=== PATIENT | female | born 1965 | race Caucasian/White ===

== ENCOUNTER 2018-04-14 14:15 | Emergency (ER) | payer SELFPAY ==
[2018-04-14 14:28] VITALS: BP 163/83; PULSE 75; RESP 16; TEMP 36.6; O2SAT 98
--- NOTE | 2018-04-14 14:37 | DI.RAD_ITS ---
SYMPTOM/DIAGNOSIS: PAIN 4TH, 5TH MC, PUNCHED WALL RIGHT HAND: Three views. There is a fracture involving the distal aspect of the right 5th metacarpal extending in to the metacarpal head. The fracture is mildly displaced and angulated anteriorly No other fracture or dislocation is seen. No radiopaque foreign bodies are seen in the soft tissues. IMPRESSION: Mildly displaced fracture involving the distal right 5th metacarpal.
--- NOTE | 2018-04-14 14:38 | W.ED.GENAD ---
Discharge Plan Disposition Patient Disposition: HOME Condition: Serious Discharge Details Chief Complaint: Orthopedic Clinical Impression: Closed fracture of fifth metacarpal bone of right hand Reason For Visit: right hand pain Primary Care Provider: Terry Dailey ED Provider: Tarik De Souza Home Meds and New Rx's Prescriptions: No Action ibuprofen 200 mg Capsule 800 mg PO TID PRNRF: 0 Discharge Instructions Instructions: Boxer Fracture (ED) Additional Instructions: Please take ibuprofen 600 mg every 6 hours as needed for pain. Please take tylenol 650mg every 6 hours as needed for pain. Please contact your primary care physician to arrange follow-up. Keep splint intact. No lifting with right hand. Call orthopedics to schedule follow-up. Return to the ER for any worsening or new concerning symptoms. Referrals: Fahad Galvez MD [[facility] STAFF PHYSICIAN] - Medical Decision Making 53yo f here 2 days after punching wall with right 4th and 5th MC pain, tenderness and swelling. Neurologically intact xray of the hand reviewed and interpreted by me: distal 5th MT fracture with minimal angulation. Hand splinted. Neuro intact post splint application. Patient was instructed to keep splint intact and not lift with her right hand. Patient was instructed to follow-up with orthopedics. She has previously seen Dr. Galvez for other injuries and would prefer to follow-up with him. HPI General Mode of arrival: ambulatory. Date/Time Provider Initiated Documentation: 04/14/18 14:33. Limitations to Documentation: no limitations. Information obtained by: patient. HPI Narrative: 53-year-old female presents with chief complaint of right hand pain. Patient notes that 2 days ago she punched a wall and injured her hand. Hand has been painful since the injury. Pain is moderate to severe and worse with movement or on palpation. She has associated swelling. Pain is localized to her fourth and fifth metacarpals. No associated numbness. Related Data Home Medications Medication Instructions Recorded Confirmed ibuprofen 800 mg PO TID PRN 04/14/18 04/14/18 Allergies Allergy/AdvReac Type Severity Reaction Status Date / Time Tetracyclines AdvReac Mild Nausea Unverified 04/14/18 14:33 General Stated Complaint: Orthopedic MARCELLUS: 4 Review of Systems Musculoskeletal Reports as per HPI Neurologic Reports as per HPI [facility] Medical History Ectopic Lumbago Osteoarthritis Social History Smoking/Tobacco Use Status: Current every day Surgical History Excision, Lipoma (08/12/14) HYSTERECTOMY KNEE REPAIR Oophrectomy, Right Exam Const General: cooperative and no acute distress Cardio Rate: regular rate and not tachycardic Rhythm: regular rhythm Neuro General: alert, awake, tone normal and no focal motor deficits (distal right hand all digits) Extrem General: no edema Right upper extremity: wrist Details: normal to inspection and normal ROM; no tenderness and hand Details: neuromotor exam normal, neurosensory exam normal and tenderness Location: of the dorsal hand Location: over the 4th metacarpal and over the 5th metacarpal Course Vital Signs Temperature 36.6 C 04/14/18 14:28 Pulse 75 04/14/18 14:28 Respiratory Rate 16 04/14/18 14:28 Blood Pressure 163/83 H 04/14/18 14:28 Pulse Oximetry 98 04/14/18 14:28 Temperature 36.6 C 04/14/18 14:28 Temperature Source Tympanic 04/14/18 14:28 Pulse 75 04/14/18 14:28 Respiratory Rate 16 04/14/18 14:28 Blood Pressure 163/83 H 04/14/18 14:28 Blood Pressure Position Sitting 04/14/18 14:28 Pulse Oximetry 98 04/14/18 14:28 Oxygen Delivery Method Room Air 04/14/18 14:28 Oxygen Flow Rate 0 04/14/18 14:28 Pain Level 5 04/14/18 14:28
--- NOTE | 2018-04-14 14:46 | ED.GENADUL_ITS ---
Discharge Plan Disposition Patient Disposition: HOME Condition: Serious Discharge Details Chief Complaint: Orthopedic Clinical Impression: Closed fracture of fifth metacarpal bone of right hand Reason For Visit: right hand pain Primary Care Provider: Terry Dailey ED Provider: Tarik De Souza Home Meds and New Rx's Prescriptions: No Action ibuprofen 200 mg Capsule 800 mg PO TID PRNRF: 0 Discharge Instructions Instructions: Boxer Fracture (ED) Additional Instructions: Please take ibuprofen 600 mg every 6 hours as needed for pain. Please take tylenol 650mg every 6 hours as needed for pain. Please contact your primary care physician to arrange follow-up. Keep splint intact. No lifting with right hand. Call orthopedics to schedule follow-up. Return to the ER for any worsening or new concerning symptoms. Referrals: Fahad Galvez MD [[facility] STAFF PHYSICIAN] - Medical Decision Making 53yo f here 2 days after punching wall with right 4th and 5th MC pain, tenderness and swelling. Neurologically intact xray of the hand reviewed and interpreted by me: distal 5th MT fracture with minimal angulation. Hand splinted. Neuro intact post splint application. Patient was instructed to keep splint intact and not lift with her right hand. Patient was instructed to follow-up with orthopedics. She has previously seen Dr. Galvez for other injuries and would prefer to follow-up with him. HPI General Mode of arrival: ambulatory . Date/Time Provider Initiated Documentation: 04/14/18 14:33 . Limitations to Documentation: no limitations . Information obtained by: patient . HPI Narrative: 53-year-old female presents with chief complaint of right hand pain. Patient notes that 2 days ago she punched a wall and injured her hand. Hand has been painful since the injury. Pain is moderate to severe and worse with movement or on palpation. She has associated swelling. Pain is localized to her fourth and fifth metacarpals. No associated numbness. Related Data Home Medications Medication Instructions Recorded Confirmed ibuprofen 800 mg PO TID PRN 04/14/18 04/14/18 Allergies Allergy/AdvReac Type Severity Reaction Status Date / Time Tetracyclines AdvReac Mild Nausea Unverified 04/14/18 14:33 General Stated Complaint: Orthopedic MARCELLUS: 4 Review of Systems Musculoskeletal Reports as per HPI Neurologic Reports as per HPI [facility] Medical History Ectopic Lumbago Osteoarthritis Social History Smoking/Tobacco Use Status: Current every day Surgical History Excision, Lipoma (08/12/14) HYSTERECTOMY KNEE REPAIR Oophrectomy, Right Exam Const General: cooperative and no acute distress Cardio Rate: regular rate and not tachycardic Rhythm: regular rhythm Neuro General: alert, awake, tone normal and no focal motor deficits (distal right hand all digits) Extrem General: no edema Right upper extremity: wrist Details: normal to inspection and normal ROM; no tenderness and hand Details: neuromotor exam normal, neurosensory exam normal and tenderness Location: of the dorsal hand Location: over the 4th metacarpal and over the 5th metacarpal Course Vital Signs Temperature 36.6 C 04/14/18 14:28 Pulse 75 04/14/18 14:28 Respiratory Rate 16 04/14/18 14:28 Blood Pressure 163/83 H 04/14/18 14:28 Pulse Oximetry 98 04/14/18 14:28 Temperature 36.6 C 04/14/18 14:28 Temperature Source Tympanic 04/14/18 14:28 Pulse 75 04/14/18 14:28 Respiratory Rate 16 04/14/18 14:28 Blood Pressure 163/83 H 04/14/18 14:28 Blood Pressure Position Sitting 04/14/18 14:28 Pulse Oximetry 98 04/14/18 14:28 Oxygen Delivery Method Room Air 04/14/18 14:28 Oxygen Flow Rate 0 04/14/18 14:28 Pain Level 5 04/14/18 14:28
--- NOTE | 2018-04-14 15:22 | DI.VRAD_ITS ---
EXAM: XR Right Hand Complete, 3 or more Views EXAM DATE/TIME: 04/14/2018 2:39 PM CLINICAL HISTORY: 53 years old, female; Pain; Hand; Right; Patient HX: Pain 4th/5th mc; Per PT: Hit door casing TECHNIQUE: XR Right hand 3 or more views. COMPARISON: CR RIGHT WRIST LIMITED 09/22/2012 7:28 AM FINDINGS: Bones/joints: Displaced fracture distal fifth metacarpal shaft extending into the metacarpal head. No articular extension. Soft tissues: Normal. IMPRESSION: Displaced fracture distal fifth metacarpal shaft extending into the metacarpal head. No articular extension. Dictated and Authenticated by: Myah Gomez MD. Ordering:EDWIN WAKEFIELD MD
== END 2018-04-14 14:35 | disposition home or self-care (01) ==
PROVIDERS: Emergency Provider Student in an Organized Health Care Education/Training Program; PCP Family Medicine
DX: S62.336A Displaced fracture of neck of fifth metacarpal bone, right hand, initial encounter for closed fracture (principal); W22.09XA Striking against other stationary object, initial encounter
CPT/HCPCS: 26600; 73130; L3809

== ENCOUNTER 2018-04-23 09:32 | Outpatient (CLI) | payer SELFPAY ==
--- NOTE | 2018-04-23 09:21 | DI.RAD_ITS ---
SYMPTOM/DIAGNOSIS: F/U FX RIGHT HAND: Three views. Comparison is made with 04/14/18. There has been no change in alignment of the fracture involving the distal aspect of the right fifth metacarpal. No new fractures or dislocations are seen. The soft tissues are unremarkable. IMPRESSION: Stable right fifth metacarpal fracture.
== END 2018-04-23 09:52 ==
PROVIDERS: PCP Family Medicine; Visit Provider Physician Assistant
DX: S62.366A Nondisplaced fracture of neck of fifth metacarpal bone, right hand, initial encounter for closed fracture (principal)
CPT/HCPCS: 73130

== ENCOUNTER 2019-04-01 01:26 | Outpatient (CLI) | payer SELFPAY ==
--- NOTE | 2019-04-01 08:51 | DI.RAD_ITS ---
EXAM: XR FINGER LT INDEX INDICATION: Foreign body versus cellulitis, M79.645 PAIN LT FINGER. COMPARISON: XR hand RT complete from 04/23/2018 TECHNIQUE: 2D digital imaging was performed. FINDINGS: No radiopaque foreign body is seen. There is no radiographic evidence of osteomyelitis. No abnorma l soft tissue air is seen.
== END 2019-04-01 01:46 ==
PROVIDERS: PCP Family Medicine
DX: M79.645 Pain in left finger(s) (principal)
CPT/HCPCS: 73140

== ENCOUNTER 2019-05-23 20:07 | Emergency (ER) | payer SELFPAY ==
[2019-05-23 20:10] VITALS: BP 167/71; PULSE 95; RESP 24; TEMP 36.8; O2SAT 98
[2019-05-23] MEDS: HYDROmorphone 2 MG/ML VIAL 1 MG IVP (20:20)
[2019-05-23] MEDS: Normal Saline Flush 10 ML SYR IVP (20:20)
--- NOTE | 2019-05-23 20:25 | ED.GENADUL_ITS ---
Discharge Plan Disposition Patient Disposition: HOME Condition: Stable Discharge Details Chief Complaint: Nk/Back Pain Clinical Impression: Back pain Primary Care Provider: Terry Dailey ED Provider: Jenaro Bansal Home Meds and New Rx's Prescriptions: New diazepam [Valium] 5 mg tablet 5 mg PO Q6H PRN (Reason: muscle spasm) Qty: 20 RF: 0 prednisone 20 mg tablet 60 mg PO DAILY 4 Days Qty: 12 RF: 0 Continued ibuprofen 200 mg Capsule 800 mg PO TID PRNRF: 0 Discharge Instructions Instructions: Back Pain (ED) Additional Instructions: follow up with your primary care provider within a week and also I referred you to the pain clinic and you should be contacted with an appointment if you have fevers, difficulty urinating or feel more pain return to the emergency department you can take 1000mg tylenol every 6 hours and 800mg ibuprofevern every 8 hours. You an also use over the counter lidocaine patches Medical Decision Making 54 yo female with prior history of back pain s/p injections per pt many years ago comes in with several days of lower back pain but acutely worsened tonight withuot falls or trauma. Denies fevers or ivdu. She states she went on a trip recently where she walked much farther than she normally does. She arrives writhing in pain with pain in lower left back without deformities and no rashes or skin breakdown, has mild llq pain as well. No chest pain or upper back pain to suggest acs. Given her degree of pain could be dissection vs kidney stone, will obtain imaging to eval for these and also lumbar spince compression fx. Has no weakness or saddle anesthesia on exam so doubt cauda equina and no urinary retention and no findings on history to suggest sea pt's pain improved, labs unremarkable as is imaging. She still has left lower back pain shooting down the leg likely from sciatica, no saddle anesthesia and had urination with only 10cc urine left in bladder so doubt cauda equina. Could also be muscle spasm. She is still having a lot of pain with movement and I offered admission for pain control which she declined. I advised f/u with her pcp and return precautions given Differential Diagnosis Differential Diagnosis: sciatica, muscle pain, spasm, dissection Imaging Data Radiologic Study: Attestation: I personally reviewed and interpreted this imaging study as follows: Imaging: CT Scan Radiologist's impression: no acute findings Lab Data Lab results reviewed: Yes I reviewed the patient's lab results. HPI General Mode of arrival: wheelchair . Date/Time Provider Initiated Documentation: 05/23/19 20:10 . Limitations to Documentation: no limitations . Information obtained by: patient . History of Present Illness 54 year old F presents to the emergency department with the chief complaint of back pain, described as severe, with intensity rated at 10. Quality is described as sharp, and is localized to the back. Patient reports no radiation. Patient started experiencing this hour(s) (2) and it has been constant. No relieving factors improve symptom(s), No exacerbating factors reported . Patient did receive the following treatments prior to arrival, none Related Data Home Medications Medication Instructions Recorded Confirmed ibuprofen 800 mg PO TID PRN 04/14/18 05/23/19 diazepam [Valium] 5 mg PO Q6H PRN #20 tab 05/23/19 prednisone 60 mg PO DAILY 4 Days #12 tab 05/23/19 Previous Rx's Medication Instructions Recorded diazepam [Valium] 5 mg PO Q6H PRN #20 tab 05/23/19 prednisone 60 mg PO DAILY 4 Days #12 tab 05/23/19 Allergies Allergy/AdvReac Type Severity Reaction Status Date / Time Tetracyclines AdvReac Mild Nausea Verified 05/23/19 20:15 General Stated Complaint: Nk/Back Pain MARCELLUS: 3 Review of Systems All systems reviewed & are unremarkable except as noted in HPI and below Constitutional Constitutional: Denies chills and Denies fever(s) Cardiovascular Cardiovascular: Denies dyspnea Respiratory Respiratory: Denies dyspnea Gastrointestinal Gastrointestinal: Denies abdominal pain, Denies nausea and Denies vomiting Musculoskeletal Musculoskeletal: Denies joint swelling Endocrine Endocrine: Denies heat intolerance [facility] Medical History (Updated 04/11/19 @ 08:51 by Shanta Pozo NP) Ectopic Finger pain, left (Acute) Lumbago Osteoarthritis Surgical History (Updated 04/18/19 @ 14:48 by JEFFREY Acuña) Excision, Lipoma (08/12/14) LEFT SIDE OF NOSE History of hysterectomy (Resolved) History of unilateral oophorectomy (Resolved) HYSTERECTOMY KNEE REPAIR LEFT Oophrectomy, Right Social History Smoking/Tobacco Use Status: Current every day Alcohol Intake: never Drug use: Never Substance use type: does not use Details: twisted tea on weekends Do you feel safe at home: Yes Do you feel safe in your relationship?: Yes Exam Const General: other (in pain) Orientation: alert HENMT Head: normal to inspection Ears: external ears normal General nose exam: external nose normal Mouth: moist mucous membranes Eyes General: appearance normal, both eyes and all related structures Neck Neck: normal visual inspection Resp Effort & Inspection: normal respiratory effort and able to speak in complete sentences Cardio Rate: regular rate Back/Spine/Pelvis Back: no CVA tenderness Skin General skin exam: no rashes or lesions noted Neuro General: alert and oriented x3 Extrem General: normal to inspection Psych Mental Status: mental status grossly normal Course Vital Signs Vital signs: Vital Signs Temperature 36.8 C 05/23/19 20:10 Pulse 95 H 05/23/19 20:10 Respiratory Rate 24 05/23/19 20:10 Blood Pressure 167/71 H 05/23/19 20:10 Pulse Oximetry 98 05/23/19 20:10 Temperature 36.8 C 05/23/19 20:10 Temperature Source Skin 05/23/19 20:10 Pulse 95 H 05/23/19 20:10 Respiratory Rate 24 05/23/19 20:10 Blood Pressure 167/71 H 05/23/19 20:10 Blood Pressure Position Supine 05/23/19 20:10 Pulse Oximetry 98 05/23/19 20:10 Oxygen Delivery Method Room Air 05/23/19 20:10 Oxygen Flow Rate 0 05/23/19 20:10 Pain Level 10 05/23/19 20:20
[2019-05-23 20:28] LABS: Abs Immature Grans 0.06 k/cumm (0.0-0.09); Absolute Basophil Count 0.04 k/cumm (0.0-0.2); Absolute Eosinophil Count 0.24 k/cumm (0.0-0.7); Absolute Monocyte Count 0.76 k/cumm (0.11-0.7); Absolute Neutrophil Count 5.37 k/cumm (1.2-6.7); Basophils % 0.4; Eosinophils % 2.2; HCT 47.7 % (36.0-46.0); HGB 15.6 g/dL (12.0-15.5); Immature Grans % 0.6; Lymphocytes % 39.4; Mean Corp. HGB Concentration 32.7 g/dL (32.0-36.0); Mean Corpuscular Hemoglobin 29.9 pg (27.0-33.0); Mean Corpuscular Volume 91.4 fL (80-95); Mean Platelet Volume 9.8 fL (8.0-11.0); Monocytes % 7.1; Neutrophils % 50.3; Platelet Count 246 x1000/uL (130-400); RBC 5.22 m/cumm (4.00-5.20); RBC Distribution Width 13.6 % (11.7-14.6); White Blood Cell Count 10.67 k/cumm (4.4-10.8)
[2019-05-23] MEDS: HYDROmorphone 2 MG/ML VIAL ×2 (20:39→23:38)
[2019-05-23] MEDS: diazePAM 10 MG/2 ML SYR 5 MG IVP ×2 (20:40→21:11)
[2019-05-23 20:42] VITALS: O2SAT 98
[2019-05-23 20:49] LABS: PTT Activated 24.7 sec (21.0-31.4); Prothrombin Time 9.6 sec (9.3-11.0)
[2019-05-23 20:57] LABS: ALT 28 U/L (14-59); AST 15 U/L (15-37); Albumin 4.3 g/dL (3.4-5.0); Alkaline Phosphatase 96 U/L (46-116); Anion Gap 12.6 mmol/L (3-11); BUN 15 mg/dL (7-18); Bilirubin, Total 0.4 mg/dL (0.2-1.0); CO2 25.4 mmol/L (21.0-32.0); CREATININE 0.82 mg/dL (0.55-1.02); Calcium 9.1 mg/dL (8.5-10.1); Chloride 102 mmol/L (98-107); Glucose 163 mg/dL (74-106); Lipase 181 U/L (73-393); Magnesium 1.8 mg/dL (1.8-2.4); Potassium 4.1 mmol/L (3.5-5.1); Sodium 140 mmol/L (136-145); Total Protein 8.4 g/dL (6.4-8.2)
[2019-05-23 21:16] VITALS: O2SAT 98
--- NOTE | 2019-05-23 21:30 | DI.CT_ITS ---
EXAM: CT THORAX ABD/PEL CTA CT THORAX ABD/PEL CTA CLINICAL HISTORY: upper to lower back pain. upper to lower back pain TECHNIQUE: Imaging Protocol: Axial computed tomography images with coronal and sagittal reformatted images were created and reviewed CONTRAST MATERIAL: Intravenous: Omnipaque 350 Contrast volume:structured data in ml Contrast route:I V - Oral: No COMPARISON: No exams were available for comparison FINDINGS: CHEST: Heart and great vessels: There is no evidence pulmonary emboli or aortic dissection. There are no pleural or pericardial effusions. Adenopathy: None. Lungs: No pulmonary nodules, mass or infiltrate. Bones: There is no evidence of spine or rib fracture. There are mild degenerative changes in the thor acic spine. ABDOMEN: Liver: Normal density. No measurable mass. Gallbladder and biliary tract: No radiodense calculus or dilation. Pancreas: Normal density, no abnormal calcifications or inflammatory process. Spleen: Normal. Kidneys: Normal size, contour and axis. No radiodense stones or obstructive uropathy. No masses seen. Adrenal glands: No masses seen. Abdominal Aorta: Abdominal portion non-dilated. Mild atherosclerotic changes. The branch vessels keya w no evidence of occlusion or significant stenosis. PELVIS: Bladder: No gross wall thickening, focal mass or stones. Bowel: No obstruction or bowel wall thickening. There is mild sigmoid diverticulosis. Peritoneal cavity: No ascites, focal collection or mesenteric inflammatory response. Bones: No suspicious lesions or fractures. Mild degenerative changes. Reproductive organs: Within normal limits. Lymph nodes: Unremarkable. Impression: Unremarkable CT scan of the chest, abdomen and pelvis. DATA REPOSITORY: All CT scans at this facility are submitted to the National Radiology Data Registry (NRDR) Dose Index Registry (DIR) with the [employer] (ACR). RADIATION OPTIMIZATION: All CT scans at this facility use at least one of these dose optimization te chniques: automated exposure control; mA and/or kV adjustment per patient size (includes targeted exa ms where dose is matched to clinical indication); or iterative reconstruction.
[2019-05-23] MEDS: Omnipaque 350 MG/ML 100 ML BTL IJ (22:04)
--- NOTE | 2019-05-23 22:05 | DI.CT_ITS ---
EXAM: CT LUMBAR SPINE WO CLINICAL HISTORY: lower back pain TECHNIQUE: Images of the lumbar spine were reconstructed from the abdomen pelvic CT. COMPARISON: No exams were available for comparison FINDINGS: There is no evidence of fracture. The alignment appears normal. The discs are normal in height. T here are small endplate osteophytes. There is mild disc bulging at L3-4 and L4-5. There is no focal disc herniation at any level. There is mild central canal stenosis at L4-5 secondary to combination of disc bulging and and ligamentous hypertrophy. There is mild bilateral neural foraminal narrowing . IMPRESSION: Degenerative disc changes and ligamentous hypertrophy causing mild central canal stenosis and mild n eural foraminal narrowing at L4-5. There is no evidence of an acute abnormality.
--- NOTE | 2019-05-23 22:07 | DI.VRAD_ITS ---
Addendum created by Adam Amaro MD on 05/23/2019 10:54:24 PM EST Moderate soft and calcified atherosclerosis of the aorta without flow-limiting stenosis. No flow-limiting stenosis or occlusion in the abdominal aortic branch vessels. Initial report created on 05/23/2019 10:07:35 PM EST PROCEDURE INFORMATION: Exam: CT Angiography Chest With Contrast Exam date and time: 05/23/2019 9:21 PM Age: 54 years old Clinical history: Other: Upper to lower back pain TECHNIQUE: Imaging protocol: Computed tomographic angiography of the chest with intravenous contrast. 3D rendering: MIP reconstructed images were created and reviewed. Radiation optimization: All CT scans at this facility use at least one of these dose optimization techniques: automated exposure control; mA and/or kV adjustment per patient size (includes targeted exams where dose is matched to clinical indication); or iterative reconstruction. Contrast material: [id number]; Contrast volume: 100 ml; Contrast route: IV; COMPARISON: CR LEFT RIBS TO INCLUDE CXR 08/08/2012 10:48 PM FINDINGS: Pulmonary arteries: No pulmonary embolism. Aorta: The aorta is normal. Lungs: Unremarkable. No consolidation. No masses. Pleural space: Unremarkable. No pneumothorax. No pleural effusion. Heart: Unremarkable. No cardiomegaly. No pericardial effusion. Lymph nodes: There is no evidence of lymphadenopathy. Bones/joints: The thoracic spine demonstrates mild degenerative changes at multiple levels. Soft tissues: Unremarkable. IMPRESSION: No acute abnormality in the chest. No pulmonary embolism. PROCEDURE INFORMATION: Exam: CT Angiography Abdomen and Pelvis With Contrast Exam date and time: 05/23/2019 9:21 PM Age: 54 years old Clinical history: Other: Upper to lower back pain TECHNIQUE: Imaging protocol: Computed tomographic angiography of the abdomen and pelvis with intravenous contrast material. 3D rendering: MIP reconstructed images were created and reviewed. Radiation optimization: All CT scans at this facility use at least one of these dose optimization techniques: automated exposure control; mA and/or kV adjustment per patient size (includes targeted exams where dose is matched to clinical indication); or iterative reconstruction. Contrast material: [id number]; Contrast volume: 100 ml; Contrast route: IV; COMPARISON: CR LEFT RIBS TO INCLUDE CXR 08/08/2012 10:48 PM FINDINGS: Aorta: The aorta demonstrates mild atherosclerotic calcification. No aortic aneurysm. Celiac trunk and mesenteric arteries: No occlusion or significant stenosis. Renal arteries: No occlusion or significant stenosis. Right iliac arteries: No occlusion or significant stenosis. Left iliac arteries: No occlusion or significant stenosis. Liver: The liver is normal. Gallbladder and bile ducts: The gallbladder is normal. Pancreas: The pancreas is normal. Spleen: The spleen is normal. Adrenals: The adrenal glands are normal. Kidneys and ureters: The kidneys are normal. Stomach and bowel: Mild diverticulosis is present in the distal colon. Appendix: A normal appendix is identified. Intraperitoneal space: Unremarkable. No free air. No significant fluid collection. Lymph nodes: Unremarkable. No enlarged lymph nodes. Bladder: The bladder is normal. Reproductive: Unremarkable as visualized. Bones/joints: Mild degenerative sclerosis of the right sacroiliac joint. The lumbar spine demonstrates mild degenerative changes at multiple levels. Soft tissues: Unremarkable. IMPRESSION: No acute abnormality in abdomen pelvis. Dictated and Authenticated by: Adam Amaro MD. Ordering:BAUDILIO Eason MD
[2019-05-23 22:50] LABS: Bilirubin Negative (Negative); Blood Trace-intact (Negative); Clarity Clear (Clear); Glucose Negative (Negative); Ketones Negative (Negative); Leukocyte Esterase Negative (Negative); Nitrite Negative (Negative); Urobilinogen 0.2 EU/dL (Up TO 0.2); pH 5.5 (5-8)
[2019-05-23] MEDS: Ketorolac 30 MG/ML VIAL IVP (22:54)
--- NOTE | 2019-05-23 22:59 | DI.VRAD_ITS ---
PROCEDURE INFORMATION: Exam: CT Lumbar Spine Without Contrast Exam date and time: 05/23/2019 9:21 PM Age: 54 years old Clinical history: Low back pain; Patient HX: Severe upper back to lower back pain TECHNIQUE: Imaging protocol: Computed tomography images of the lumbar spine without contrast. Radiation optimization: All CT scans at this facility use at least one of these dose optimization techniques: automated exposure control; mA and/or kV adjustment per patient size (includes targeted exams where dose is matched to clinical indication); or iterative reconstruction. COMPARISON: No relevant prior studies available. FINDINGS: Vertebrae: Lumbar vertebral body heights are maintained and in normal alignment. No acute fracture. Discs/Spinal canal/Neural foramina: Mild multilevel degenerative changes of the lumbar spine, most pronounced at L3-L4 and L4-L5 where partially calcified disc bulge and protrusion respectively results in mild spinal canal stenosis. No bony neural foraminal stenosis. Soft tissues: Unremarkable. IMPRESSION: 1. Mild multilevel degenerative changes of the lumbar spine, most pronounced at L3-L4 and L4-L5 where there is mild spinal canal stenosis. No bony neural foraminal stenosis. 2. No acute fracture or traumatic malalignment of the lumbar spine. Dictated and Authenticated by: Adam Amaro MD. Ordering:BAUDILIO Eason MD
[2019-05-23 23:11] LABS: RBC 0-2 HPF (0-2); WBC 0-2 HPF (0-5)
[2019-05-23 23:12] LABS: Bacteria Rare HPF (Negative); C & S Indicated? No; Epithelial Cells Many HPF (Negative)
[2019-05-23] MEDS: Lidocaine 5% Patch 1 PATCH (23:31)
[2019-05-23 23:32] LABS: Casts Negative LPF (Negative); Crystals Negative HPF (Negative); Mucus Negative (Negative)
[2019-05-23] MEDS: predniSONE 20 MG TAB 60 MG PO (23:34)
[2019-05-23] MEDS: diazePAM 5 MG TAB PO (23:36)
[2019-05-23 23:49] VITALS: BP 128/74; PULSE 78; RESP 17; TEMP 36.7; O2SAT 99
--- NOTE | 2019-05-26 15:34 | PDOC.ERCMPRO ---
- If Service Date Differs Date of service: 05/26/19 Time of Service: 15:34 Care Management Progress Note CM consult from ED for referral to [facility] and PCP F/U. PCP appt already scheduled for 05/26/19. CM delivered referral to Pain Clinic on 05/26/19.
== END 2019-05-23 23:50 | disposition home or self-care (01) ==
PROVIDERS: Emergency Provider Emergency Medicine; PCP Family Medicine
DX: M54.5 Low back pain (principal); R10.32 Left lower quadrant pain
CPT/HCPCS: 74177; 80053; 83690; 96374; 96375; 96376; 99285; 72131; 81003; 81015; 83735; 85025; 85610; 85730; 99284; J1885; J3360; J3490; J7512

== ENCOUNTER 2019-06-17 09:29 | Emergency (ER) | payer SELFPAY ==
[2019-06-17 09:33] VITALS: BP 161/93; PULSE 77; RESP 16; TEMP 36.8; O2SAT 97
--- NOTE | 2019-06-17 09:57 | DI.CT_ITS ---
EXAM: CT CERVICAL SPINE WO CLINICAL HISTORY: cervical pain TECHNIQUE: Noncontrast COMPARISON: No exams were available for comparison FINDINGS: No fracture or subluxation is seen. There are mild degenerative disc changes. There is no paraspin al hematoma. No pneumothorax is seen at the lung apices. IMPRESSION: Mild degenerative changes. No acute abnormality.
--- NOTE | 2019-06-17 11:09 | ED.GENADUL_ITS ---
Discharge Plan Disposition Patient Disposition: HOME Condition: Stable Discharge Details Chief Complaint: Nk/Back Pain Clinical Impression: Acute neck pain Primary Care Provider: Terry Dailey ED Provider: Nba Watkins Home Meds and New Rx's Prescriptions: No Action No Known Home Meds RF: 0 Discharge Instructions Instructions: Neck Pain (ED) Additional Instructions: 1. Drink plenty of fluids. 2. Continue all medications as prescribed. 3. Acetaminophen 1000mg every 4 hours (up to 5 time a day) and/or ibuprofen 600mg every 6 hours as needed for fever or pain. Return to the Emergency Department (ED) if your condition worsens, does not improve as expected, or for ANY other concerns. Specifically, return if you have new or uncontrolled pain, worsening fever, difficulty breathing, vomiting, or are unable to drink fluids. Medical Decision Making 54-year-old woman presents with persistent right upper neck pain which has persisted for the past 2 weeks since an accidental fall. Localizes pain to the right upper lateral neck. Pain is worsened with positional change and by direct palpation. Has no associated neurologic deficits. Exam significant for focal tenderness which reproduced subjective pain. Cervical CT ordered a nondiagnostic. Discussed nondiagnostic findings with patient. Discharged with plan for aggressive OTC analgesia, ice, and outpatient PCP follow-up. Given usual customary return instructions prior to discharge. Medical Records Medical records reviewed: Yes I reviewed the patient's medical records. Imaging Data Radiologic Study: Attestation: I personally reviewed and interpreted this imaging study as follows: Imaging: CT Scan (Cervical spine without contrast) My impression: No acute pathology or explanation of pain appreciated. Reviewed independently contemporaneously by myself. Radiologist's impression: Same HPI 54-year-old with a past medical history which includes lumbago, osteoarthritis, and back pain. Recently treated with steroids for lower back sciatica. Also recently had an accidental fall with a head impact and severe, persistent right- sided neck pain. She notes a focal discomfort at her upper right lateral neck which is worse with direct palpation or positional change. She has not had any associated neuro symptoms including no upper extremity weakness, paresthesias, or discoordination. She has had no difficulty with her stance and gait. Of note she had minimal improvement while taking steroids for low back pain and has not taken any OTC analgesia since completing a course that medication 1 week ago. She denies fever/chills, difficulty swallowing, or any subjective soft tissue swelling. General Date/Time Provider Initiated Documentation: 06/17/19 09:31 . Related Data Home Medications Medication Instructions Recorded Confirmed Unknown [No Known Home Meds] 06/17/19 06/17/19 Allergies Allergy/AdvReac Type Severity Reaction Status Date / Time Tetracyclines AdvReac Mild Nausea Verified 06/17/19 09:40 General Stated Complaint: Nk/Back Pain MARCELLUS: 4 Review of Systems All systems reviewed & are unremarkable except as noted in HPI and below PFSH Medical History Ectopic Finger pain, left (Acute) Lumbago Osteoarthritis Surgical History Excision, Lipoma (08/12/14) LEFT SIDE OF NOSE History of hysterectomy (Resolved) History of unilateral oophorectomy (Resolved) HYSTERECTOMY KNEE REPAIR LEFT Oophrectomy, Right Social History Smoking/Tobacco Use Status: Current every day Alcohol Intake: current Alcohol Intake frequency: a few times a month Drug use: Never Substance use type: does not use Details: twisted tea on weekends Household members: significant other Housing: house Number of Children: 4 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 GENERAL: alert, active, no acute distress, well -hydrated, well-nourished HEENT: atraumatic/normocephalic, PERRLA, EOMI, conjunctiva clear, external ears/canals normal, nasal mucosa normal NECK: supple, full range of motion; focal tenderness right lateral cervical spine C1-C2 CARDIOVASCULAR: nl pulses, no edema PULMONARY: nl effort, no audible wheezing or stridor ABDOMEN: non-distended EXTREMITY: normal muscle tone, all joints with FROM, no deformity NUERO: normal mentation, moving all extremities, normal stance and gait, no focal upper extremity weakness or sensory loss by exam PSYCH: alert and oriented SKIN: no new rashes or lesions Course Vital Signs Vital signs: Vital Signs Temperature 98.2 F 06/17/19 09:33 Pulse 77 06/17/19 09:33 Respiratory Rate 16 06/17/19 09:33 Blood Pressure 161/93 H 06/17/19 09:33 Pulse Oximetry 97 06/17/19 09:33 Temperature 98.2 F 06/17/19 09:33 Temperature Source Temporal Artery Scan 06/17/19 09:33 Pulse 77 06/17/19 09:33 Respiratory Rate 16 06/17/19 09:33 Respiratory Effort Non-Labored 06/17/19 09:38 Blood Pressure 161/93 H 06/17/19 09:33 Blood Pressure Position Sitting 06/17/19 09:33 Pulse Oximetry 97 06/17/19 09:33 Oxygen Delivery Method Room Air 06/17/19 09:33 Oxygen Flow Rate 0 06/17/19 09:33 Pain Level 6 06/17/19 09:33
[2019-06-17 11:18] VITALS: BP 121/64; PULSE 67; RESP 16; TEMP 36.8; O2SAT 97
== END 2019-06-17 11:19 | disposition home or self-care (01) ==
PROVIDERS: Emergency Provider Emergency Medicine; PCP Family Medicine
DX: M54.2 Cervicalgia (principal); W18.2XXA Fall in (into) shower or empty bathtub, initial encounter
CPT/HCPCS: 99284; 72125

== ENCOUNTER 2020-08-19 03:16 | Outpatient (CLI) | payer SELFPAY ==
[2020-08-20 15:16] LABS: COVID-19 RT-PCR UVMMC Result Negative (Negative)
== END 2020-08-19 03:17 | disposition home or self-care (01) ==
LOC: LBO 03:16
DX: Z20.822 Contact with and (suspected) exposure to COVID-19 (principal)
CPT/HCPCS: U0003

== ENCOUNTER 2021-08-26 16:57 | Outpatient (REF) | payer SELFPAY ==
[2021-08-28 14:24] LABS: COVID-19 RT-PCR UVMMC Result Negative (Negative)
== END 2021-08-26 16:58 | disposition home or self-care (01) ==
LOC: LBN 16:57
PROVIDERS: Visit Provider Family Medicine
DX: Z20.822 Contact with and (suspected) exposure to COVID-19 (principal)
CPT/HCPCS: U0003

== ENCOUNTER 2021-09-27 01:54 | Outpatient (CLI) | payer SELFPAY ==
[2021-09-27 13:31] LABS: COMMENT (LAB VIEW ONLY) 167.21 mg/dL; Microalb ug/mg Crea 7.8 ug/mg Cr
[2021-09-27 13:46] LABS: Hemoglobin A1C 8.5 % (<5.7)
[2021-09-27 14:06] LABS: ALT 73 U/L (14-59); AST 38 U/L (15-37); Albumin 4.4 g/dL (3.4-5.0); Alkaline Phosphatase 97 U/L (46-116); Anion Gap 10.1 mmol/L (3-11); BUN 18 mg/dL (7-18); Bilirubin, Total 0.8 mg/dL (0.2-1.0); CO2 29.9 mmol/L (21.0-32.0); CREATININE 0.6 mg/dL (0.55-1.02); Calcium 8.8 mg/dL (8.5-10.1); Calculated LDL 157 mg/dL (<100); Chloride 105 mmol/L (98-107); Cholesterol 226 mg/dL (<200); Glucose 99 mg/dL (74-106); HDL Cholesterol 51 mg/dL (40-60); Potassium 3.9 mmol/L (3.5-5.1); Sodium 145 mmol/L (136-145); Total Protein 7.8 g/dL (6.4-8.2); Triglyceride 91 mg/dL (<150)
[2021-09-28 11:16] LABS: Hepatitis C Ab w Rflx HCV PCR Negative (Negative)
== END 2021-09-27 01:55 | disposition home or self-care (01) ==
LOC: LBO 01:54
PROVIDERS: PCP Family Medicine; Visit Provider Family Medicine
DX: Z00.00 Encounter for general adult medical examination without abnormal findings (principal); E11.9 Type 2 diabetes mellitus without complications; Z11.59 Encounter for screening for other viral diseases
CPT/HCPCS: 36415; 80053; 80061; 86803; 82043; 82570; 83036

== ENCOUNTER 2021-11-01 03:39 | Outpatient (CLI) | payer SELFPAY ==
[2021-11-01] MEDS: Inhaler, Assist Device 1 EACH MC (08:59)
[2021-11-01] MEDS: Albuterol HFA 18 GM 200 PUFF INH IH (08:59)
--- NOTE | 2021-11-15 11:05 | W.PFT ---
Date of service: 11/01/21 Time of Service: 08:03 Pulmonary Function Test Result Requesting Provider Lesley Dodge Indications: Dyspnea Interpretation Spirometry: There is moderate to severe airflow limitation. There is a significant bronchodilator response. The decreased FVC is likely due to severe obstruction. Lung Volumes: There is evidence of air trapping. Diffusion Capacity: The diffusion is reduced. Airway Pressure: There is increased airways resistance. Impression Moderate to severe airflow obstruction with a significant bronchodilator response and a reduced diffusion. In the correct clinical context, this could represent COPD with emphysema. Clinical Correlation therefore is recommended.
== END 2021-11-01 03:40 | disposition home or self-care (01) ==
PROVIDERS: PCP Family Medicine; Visit Provider Family Medicine
DX: R06.09 Other forms of dyspnea (principal); J43.8 Other emphysema; Z72.0 Tobacco use; J44.9 Chronic obstructive pulmonary disease, unspecified
CPT/HCPCS: 94060; 94726; 94729

== ENCOUNTER → 2021-12-27 00:18 | Outpatient (CLI) | payer SELFPAY ==
--- OUTSIDE RECORDS SUMMARY | 2021-12-27 00:20 | XMS_ITS | Encounter Summary ---
:1965 Author Organization [facility] [address] Care Team Providers Name Role Phone Terry Dailey MD Primary Care Provider [phone] Reason for Visit Reason Comments Follow Up Surgery mohs recon Encounter Details Date Type Department Care Team Description 11/13/2014 Office Visit Plastic Surgery at [facility], Other specified [facility] aftercare following [facility] [address] [place], [place] PLASTIC SURGERY [id number] [place] [address] [phone] Social History Tobacco Use Types Packs/Day Years Used Date Current Every Day Smoker Cigarettes 1 30 Smokeless Tobacco: Never Used Alcohol Use Standard Drinks/Week Comments Yes 0 (1 standard drink = 0.6 oz pure alcoho l) Sex Assigned at Date Recorded Not on file documented as of this encounter Patient Instructions Patient Meera Sosa RN - 11/13/2014 9:51 AM EDT -SCAR MASSAGE TECHNIQUE: to begin 4-6 weeks following surgery What is a scar? When an injury occurs, the body immediately begins to repair itself & the area becomes swollen & sore. Eventually small collagen fibers form, becoming a solid tissue that results in a scar. This scar will continue to change in appearance for 1-2 years. Ideally, a scar is smooth & flat, blending in with the surrounding skin. However, some scars may become highly visible & unattractive d ue to factors such as your age, scar location & size, nutrition, genetics, or infection. A hypertrophic scar occurs when there is an excess production of collagen tissue that is elevated but remains within the wound boundaries. The scar is tense, red, & can be associated with itching & tenderness. A hypertrophic scar can be ordinary (usually stabilizes in 3 months & may even get smaller and smoother) or keloid. The keloid scar invades nearby tissue that was not part of the original wound, tends to enlarge even after 6 months & does not get softer. Will scar massage make my scars disappear? Nothing can make scars disappear. However, massaging the scar assists the body in breaking down the scar tissue to give it a flatter, softer, appearance. Massage also mobilizes the scar, preventing it from adhering to underlying tissue, tendons, & nerves. You can make the greatest difference in the appearance of the scar if you massage it in the first 3 months. What should I use on my scars? You will hear many recommendations. This clinic finds that it is the massage itself that reduces thescar & not necessarily the choice of ointments or creams. We do discourage the use of Vitamin E oil, however, due to studies that have reported scar inflammation & deterioration. How do I massage my scars? Generously apply the lotion or cream into the scar 3-4 times a day for 8 weeks on new scars, and 3-4times per day for 3 to 6 months on existing scars. Using your finger, apply pressure to the scar in a crosswise & circular direction, bearing down as hard as tolerated. Remember to protect your scar from the sun, especially in the first 6-12 months, by using a moisturizer with sunblock and wearing a physical barrier (ie: a hat) when possible -SCAR MASSAGE TECHNIQUE: to begin 4-6 weeks following surgery What is a scar? When an injury occurs, the body immediately begins to repair itself & the area becomes swollen & sore. Eventually small collagen fibers form, becoming a solid tissue that results in a scar. This scar will continue to change in appearance for 1-2 years. Ideally, a scar is smooth & flat, blending in with the surrounding skin. However, some scars may become highly visible & unattractive d ue to factors such as your age, scar location & size, nutrition, genetics, or infection. A hypertrophic scar occurs when there is an excess production of collagen tissue that is elevated but remains within the wound boundaries. The scar is tense, red, & can be associated with itching & tenderness. A hypertrophic scar can be ordinary (usually stabilizes in 3 months & may even get smaller and smoother) or keloid. The keloid scar invades nearby tissue that was not part of the original wound, tends to enlarge even after 6 months & does not get softer. Will scar massage make my scars disappear? Nothing can make scars disappear. However, massaging the scar assists the body in breaking down the scar tissue to give it a flatter, softer, appearance. Massage also mobilizes the scar, preventing it from adhering to underlying tissue, tendons, & nerves. You can make the greatest difference in the appearance of the scar if you massage it in the first 3 months. What should I use on my scars? You will hear many recommendations. This clinic finds that it is the massage itself that reduces thescar & not necessarily the choice of ointments or creams. We do discourage the use of Vitamin E oil, however, due to studies that have reported scar inflammation & deterioration. How do I massage my scars? Generously apply the lotion or cream into the scar 3-4 times a day for 8 weeks on new scars, and 3-4times per day for 3 to 6 months on existing scars. Using your finger, apply pressure to the scar in a crosswise & circular direction, bearing down as hard as tolerated. Remember to protect your scar from the sun, especially in the first 6-12 months, by using a moisturizer with sunblock and wearing a physical barrier (ie: a hat) when possible documented in this encounter Progress Notes [facility] APRN - 11/13/2014 9:45 AM EDT Plastic Surgery Post Op Note Reason for visit: F/U status post procedure Date of surgery: 11/04/14 Procedure(s): Moh's closure with nasolabial flap Pain: 06/20 HPI: Patient reports that she has been well since her surgery. One stitch fell out. Examination: Patient is alert, conversant, comfortable, ambulating Flap warm and well perfused. Incision: CDI, healing well, remaining sutures removed 2 mm round open area at superior edge of wound with healthy base No collection, no erythema, no evidence of cellulitis. Impression: Felicita Collazo is a 49 y.o. female who was seen today for follow- up after the above procedure. Please see the operative note for details. She is doing well without complaints. Sun exposure avoidance discussed along with scar massage which I recommend using lotion opposed to vitamin E. Plan: 1. Follow up: [address] Preciado 2. Sun exposure avoidance 3. Scar massage I , Vivian Melissa, am acting as scribe [facility] APRN. All work documented was performed by [facility] APRN. I performed the above scribed service and agree with the accuracy of the note [facility] APRN documented in this encounter Plan of Treatment Not on filedocumented as of this encounter Visit Diagnoses Diagnosis Other specified aftercare following surg zamzam documented in this encounter Care Teams Industrial Sales Manager Relationship Specialty Start Date End Date Terry Dailey MD PCP - General 08/21/[address] [place] [address] documented as of this encounter
--- OUTSIDE RECORDS SUMMARY | 2021-12-27 00:20 | XMS_ITS | Encounter Summary ---
:1965 [place] [address] Care Team Providers Name Role Phone Terry Dailey MD Primary Care Provider [phone] Encounter Details Date Type Department Care Team Description 11/04/2014 Surgery Outpatient Surgery Bowen Preciado MD ADJ.TISSUE TRANSFER, [facility] REARRANGEMENT, 10SQ.CM [facility] DR OR LESS, NOSE ([facility] PLASTIC SURGE RY 9.23) [place] [phone] Social History Tobacco Use Types Packs/Day Years Used Date Current Every Day Smoker Cigarettes 1 30 Smokeless Tobacco: Never Used Alcohol Use Standard Drinks/Week Comments Yes 0 (1 standard drink = 0.6 oz pure alcoho l) Sex Assigned at Date Recorded Not on file documented as of this encounter Last Filed Vital Signs Vital Sign Reading Time Taken Comments Blood Pressure 112/59 11/04/2014 8:35 AM EDT Pulse 68 11/04/2014 8:35 AM EDT Temperature 36.4 ??C (97.5 ??F) 11/04/2014 8:22 AM EDT Respiratory Rate 16 11/04/2014 8:35 AM EDT Oxygen Saturation 97% 11/04/2014 8:35 AM EDT Inhaled Oxygen Concentration - - Weight 88 kg (194 lb) 11/04/2014 6:40 AM EDT Height 174 cm (5' 8.5) 11/04/2014 6:40 AM EDT Body Mass Index 29.07 11/04/2014 6:40 AM EDT documented in this encounter Discharge Instructions Discharge Gonzalez Finchie G, RN - 11/04/2014 7:00 AM EDT General Anesthesia Discharge Instructions Go home and rest. You may be sleepy for several hours. Take it easy as sudden position changes may cause nausea and/or dizziness. Use caution on stairs. Do not smoke if you are alone. Follow a light to regular diet as tolerated today. If nausea occurs, start with clear liquids, and progress slowly to a regular diet. Do not drive, operate machinery, drink alcoholic beverages or make any legal decisions after having general anesthesia. The medications given change your reaction time and alter your judgement. IV site -- slight redness is normal, you can use warm compresses. If tenderness and redness increases or foul drainage occurs, please contact your M.D. Patients who have had endotracheal tubes/LMA (tubes used by the anesthesia staff to ensure a safe airway during your operation) may have a sore throat. This is normal and cold liquids or soothing lozengers will help ease this discomfort. Narcotic pain medications can cause constipation, please ask the surgeons office what they recommendfor prevention of this. Some non-pharmaceutical means of constipation prevention include increasing intake of fluids, eating more fruits and vegetables as well as fruit juices. If you are uncomfortable and/or unable to urinate within 8 hours of discharge and it is before 5 pm,call your physician. If it is after 5pm go to the closest emergency room or call the hospital watch engine operator at [phone] and ask for physician slot operations director covering for your physician. Questions or problems after 5pm or on a weekend: Call the [facility] watch engine operator at and ask for the physician slot operations director covering for your doctor. Patient InstructionsFabrice Rivers MD - 11/04/2014 7:16 AM EDT Sleep with your head elevated May shower in 48hrs, no baths, pools or hot tubs. Avoid direct sun exposure. Do not smoke or be around people that smoke as this may impede proper wound healing No heavy lifting >5lbs Call if your incision opens up, you develop spreading redness from the site of incision, or drainageof pus, fever >101 documented in this encounter Medications at Time of Discharge Medication Sig Dispensed Refills Start Date End Date acetaminophen (TYLENOL) Take 1,000 mg by 0 11/13/2014 500 mg Tablet mouth every 8 hours as needed for Pain. oxyCODONE (ROXICODONE) 5 Take 1 tablet by 30 tablet 0 11/0411/13/2014 mg Tablet mouth every 4 hours as needed. terbinafine HCl (LAMISIL) Take 250 mg by 0 11/13/2014 250 mg Tablet mouth daily. ibuprofen (ADVIL;MOTRIN) 600mg, PO, Four 0 200511/13/2014 600 mg tablet times daily documented as of this encounter Progress Notes Riri Santana RN - 11/04/2014 8:54 AM EDT Discharge instructions done with the patient's daughter, all questions answered. documented in this encounter H&P Notes Fabrice Rivers MD - 11/04/2014 7:14 AM EDT Patient Name: Felicita Collazo Patient Age: 49 y.o. Birthdate: 1965 Admit date: 11/04/2014 Attending Physician: Bowen Preciado MD No interval changes in medical hx. Filed Vitals: 11/04/14 0640 BP: 128/74 Pulse: 71 Temp: 36.1 ??C (97 ??F) Resp: 18 nad Breathing is non laBORED NSR Left nasal ala defect Cn 5/7 intact b/l A/p To OR for closure of the left nasal ala defect. The operative procedure, risks, benefits, alternatives and complications were discussed, patient's questions were answered and she elected to proceed. Consent was verified. Bowen Preciado MD - 11/04/2014 7:10 AM EDT Patient Name: Felicita Collazo Patient Age: 49 y.o. Birthdate: 1965 Admit date: 11/04/2014 Attending Physician: Bowen Preciado MD Patient Vitals for the past 24 hrs: BP Temp Temp src Pulse Resp SpO2 Height Weight 11/04/14 0640 128/74 mmHg 36.1 ??C (97 ??F) Temporal 71 18 95 % 174 cm (5' 8.5) 87.998 kg (194 lb) Patient with left nasal ajay Mohs defect 2.0 x 2,0 cm. Will plan for flap closure in OR today. Exam unchanged from before. documented in this encounter Miscellaneous Notes Op Note - Bowen Preciado MD - 11/04/2014 8:[address] [facility] Operative Note Patient Name: Felicita Collazo : [id number] MR#: [id number] Case Date: 11/04/2014 Surgeon: Surgeon(s) and Role: * Bowen Preciado MD - Primary * Fabrice Rivers MD - Resident-Surgeon Chief Preoperative diagnosis: BCC nasal ala 1.5 x 1.7 left nasal ala defect Postoperative diagnosis: BCC nasal ala : same Procedure(s): ADJ.TISSUE TRANSFER, REARRANGEMENT, 10SQ.CM OR LESS, NOSE with superioly based nasolabioal flap Anesthesia: General Estimated Blood Loss: minimal Specimens removed during surgery: none Disposition: awakened from anesthesia, extubated and taken to the recovery room in a stable condition, having suffered no apparent untoward event. 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 Howard previously with a resulting 1.5 x 1.7 cm defect. She was brought to the operating room for closure. Risks, benefits, and complications, including potential for infection, bleeding, scarring, hematoma, infection, poor aesthetic results, and need for further surgery and revision, were also discussed. Poor aesthetic result and result in asymmetry was also discussed. Procedure: Following the adequate induction of local anesthesia with general LMA anesthesia, the patient was prepped and draped in the usual sterile fashion. A superiorly-based nasolabial flap was designed along the length of the nasolabial fold for approximately 2 cm. Dissection was carried out underneath, and this was elevated up and then rotated into position from a superiorly based position. The donor site was then closed with a combination of 5-0 Vicryl followed by 6-0 nylon, and the resultant defect was turned, positioned, and components of the skin were defatted. There were no problems with this. Inset was appropriate. This was done with a 5-0 Vicryl then followed by a combination of 5-0 nylon at the anchoring position and then interrupted 6-0 nylon. The patient tolerated the procedure well. There were no problems or complications. Anesthesia was reversed. She was taken to the recovery room in stable condition. Attestation: Case Date: 11/04/2014 I was present and I participated during the entire procedure Bowen Preciado MD 11/04/2014 Brief Op Note - Fabrice Rivers MD - 11/04/2014 8:16 AM EDT Brief Operative Note Patient Name: Felicita Collazo : [id number] MR#: [id number] Case Date: 11/04/2014 Surgeon: Surgeon(s) and Role: * Bowen Preciado MD - Primary * Fabrice Rivers MD - Resident-Surgeon Chief Preoperative diagnosis: BCC nasal ala Postoperative diagnosis: BCC nasal ala Procedure(s): ADJ.TISSUE TRANSFER, REARRANGEMENT, 10SQ.CM OR LESS, NOSE Anesthesia: General Findings: 1.5 x1.7 left nasal ala defect closed with superiorly based nasolabial flap Complications: none Fluids: 300cc Estimated Blood Loss: 5cc Drains: none Disposition: awakened from anesthesia, extubated and taken to the recovery room in a stable condition, having suffered no apparent untoward event. Condition: doing well without problems (Please see the Surgical Encounter Summary for any Implant and Specimen details pertinent to this patient.) documented in this encounter Plan of Treatment Not on filedocumented as of this encounter Procedures Procedure Name Priority Date/Time Associated Diagnosis Comme nts ADJ.TISSUE TRANSFER, 11/04/2014 7:28 AM EDT BCC nasal ala REARRANGEMENT, 10SQ.CM OR LESS, NOSE (WRVU 9.23) documented in this encounter Visit Diagnoses Not on filedocumented in this encounter Administered Medications Inactive Administered Medications - up to 3 most recent administrations Medication Order MAR Action Action Date Dose Rate Site lidocaine-EPINEPHrine 1 Given 11/04/2014 7:48 AM 5 mLs 19- Surgical Site %-1:100,000 injection EDT ONCE PRN, Starting on Sun11/04/14 at 0748, Until Sun11/04/14 at 1210, Intra-Operative (Intra-Procedure), Routine documented in this encounter Active and Recently Administered Medications Times are shown in EDT. Continuous Medication Order 11/02/2014 11/03/2014 11/04/2014 lactated ringers infusion 1,000 mL (CANCELED) 0726 (New Bag - Provider: Eliana Xie CRNA)0825 (Anesthesia Volume Adjustment - Provider: Eliana Xie CRNA) 1,000 mL, at 100 mL/hr, Intravenous, CON TINUOUS, Starting Sun11/04/14 at 0700, Until Sun11/04/14 at 1210 PRN Medication Order 11/02/2014 11/03/2014 11/04/2014 lidocaine-EPINEPHrine 1 %-1:100,000 injection (CANCELED) 0748 (Given - Provider: Bowen Preciado MD) ONCE PRN, Starting Sun11/04/14 at 0748, Until Sun11/04/14 at 1210, Intra- Operative (Intra-Procedure), Routine documented in this encounter Care Teams Sterilizer Operator Relationship Specialty Start Date End Date Terry Dailey MD PCP - General 08/21/[address] [place] [address] [address] [place] [address] documented as of this encounter
--- OUTSIDE RECORDS SUMMARY | 2021-12-27 00:20 | XMS_ITS | Clinical Summary ---
:1965 Author Organization [facility] [place] [address] Care Team Providers Name Role Phone Terry Dailey MD Primary Care Provider [phone] Allergies Active Allergy Reactions Severity Noted Date Comments Tetracyclines Nausea Only Medications No known medications Active Problems Problem Noted Date Basal cell carcinoma of left ala nasi 09/11/2014 Family History Medical History Relation Comments Stroke Mother Relation Status Comments Mother Social History Tobacco Use Types Packs/Day Years Used Date Current Every Day Smoker Cigarettes 1 30 Smokeless Tobacco: Never Used Tobacco Cessation: Ready to Quit: No Alcohol Use Standard Drinks/Week Comments Yes 0 (1 standard drink = 0.6 oz pure alcoho l) Sex Assigned at Date Recorded Not on file Last Filed Vital Signs Vital Sign Reading Time Taken Comments Blood Pressure 123/65 11/04/2014 9:05 AM EDT Pulse 65 11/04/2014 9:05 AM EDT Temperature 36.4 ??C (97.5 ??F) 11/04/2014 8:22 AM EDT Respiratory Rate 18 11/04/2014 9:05 AM EDT Oxygen Saturation 96% 11/04/2014 9:05 AM EDT Inhaled Oxygen Concentration - - Weight 88 kg (194 lb) 11/04/2014 6:40 AM EDT Height 174 cm (5' 8.5) 11/04/2014 6:40 AM EDT Body Mass Index 29.07 11/04/2014 6:40 AM EDT Plan of Treatment Health Maintenance Due Date Last Done Comments Covid-19 Vaccine (#1) 1970 HIV screen 1983 Hepatitis C Screening 1983 Tdap adult 02/09/1984 Tetanus vaccine 02/09/1984 HPV test 1995 PAP Smear 1995 Breast Cancer Share Decision Needed 2005 Colonoscopy 2010 Breast Cancer screening 2015 Zoster vaccine (1 of 2) 2015 Advance Directive 02/09/2020 Influenza (Flu) vaccine (1 of 1 - Influenza standard 02/09/2022 series) Care Teams Wellness Manager Relationship Specialty Start Date End Date Terry Dailey MD PCP - General 08/21/[address] [place] [address] [address] [place] [address]
--- OUTSIDE RECORDS SUMMARY | 2021-12-27 00:20 | XMS_ITS | Encounter Summary ---
:1965 [place] [address] Care Team Providers Name Role Phone Terry Dailey MD Primary Care Provider [phone] Encounter Details Date Type Department Care Team Description 11/04/2014 Anesthesia Event [facility] [place] [address] [facility] [place] [address] [place] [address] Anesthesia Record Procedure Summary Procedure Name Responsible Anesthesia Start Anesthesia Stop Time Anesthesiologist Time ADJ.TISSUE Rc Link, DO 11/04/14 0726 11/04/14 082 6 TRANSFER, REARRANGEMENT, 10SQ.CM OR LESS, NOSE (WRVU 9.23) (Left Head) Events Date Time Event Comment 11/04/2014 0651 0726 Start 0728 AN Verify 0728 An Start Data 0734 An Induction 0735 An Intubation 0736 Anesthesia Ready 0816 Extubation/LMA Out 0820 an stop data 0826 Stop Name Total fentaNYL 25 mcg IV Lidocaine 50 mg Propofol 200 mg Ondansetron 8 mg Dexamethasone 8 mg Propofol INF 457.6 mg Ketorolac 30 mg lactated ringers infusion 1,000 mL 400 mL Agents Name O2 Air Sevoflurane (et) Blood No blood administrations on file. Lines, Drains, and Airways Type Details Placement Removal Incision 11/04/14; nose 05/27/15 0000 by Nadine Rodrigez RN PIV 11/04/14; 0659; metacarpal 11/04/14 0659 by Perr on, 11/04/14 0910 by vein right (top of hand); MURRAY Campo Linda M, RN [id number] catheter system; 22 gauge, 1 in length; distraction, intradermal injection; no longer indicated, removed per policy/procedure; 11/04/14; 0910 Supraglottic Mask Ventilation: Easy 11/04/14 0735 by 11/04/14 0816 by (1); LMA Type: Unique; LMA Ticknor, Eliana L, VENEER PRESS OPERATOR Ticknor, Eliana Strauss, VENEER PRESS OPERATOR Size: 3; Inserted by: Eliana Xie VENEER PRESS OPERATOR documented in this encounter Social History Tobacco Use Types Packs/Day Years Used Date Current Every Day Smoker Cigarettes 1 30 Smokeless Tobacco: Never Used Alcohol Use Standard Drinks/Week Comments Yes 0 (1 standard drink = 0.6 oz pure alcoho l) Sex Assigned at Date Recorded Not on file documented as of this encounter OR Notes Anesthesia Postprocedure Evaluation - Rc Link DO - 11/04/2014 9:49 AM EDT Patient: Felicita Collazo Procedure(s) Performed: Procedure(s): ADJ.TISSUE TRANSFER, REARRANGEMENT, 10SQ.CM OR LESS, NOSE Actual Anesthetic: general Patient location: PACU Post-op pain: Adequate analgesia Post-op nausea: no nausea or vomiting Last Vitals: Filed Vitals: 11/04/14 0905 BP: 123/65 Pulse: 65 Temp: Resp: 18 Post-op cardiovascular and respiratory status: is stable Level of consciousness: awake, alert and oriented Complications: no apparent complications and tolerated the procedure well Fluid Status: normal Anesthesia Preprocedure Evaluation - Rc Link DO - 11/04/2014 6:48 AM EDT Pre-Anesthesia Evaluation for: Felicita Collazo a 49 y.o. female. Procedure(s): ADJ.TISSUE TRANSFER, REARRANGEMENT, 10SQ.CM OR LESS, NOSE ADJ.TISSUE TRANSFER, REARRANGEMENT, 10.1 TO 30 SQ.CM, EARS FULL THICKNESS GRAFT,FREE, W/ DIRECT CLOSURE DONOR SITE, 20SQ CM OR LESS, NOSE FLAP, FOREHEAD PRESERVATION OF VASCULAR PEDICLE GRAFT, EAR CARTILAGE NOSE, EAR GRAFT, CARTILAGE NASAL SEPTUM Patient Active Problem List Diagnosis ??? Basal cell carcinoma of left ala nasi Past Medical History Diagnosis Date ??? Allergic state ??? Cancer ??? Basal cell carcinoma of left ala nasi Past Surgical History Procedure Laterality Date ??? Genital surg proc, female unlisted ??? Unlisted evaluation service History Substance Use Topics ??? Smoking status: Current Every Day Smoker -- 1.00 packs/day for 30 years Types: Cigarettes ??? Smokeless tobacco: Never Used ??? Alcohol Use: Yes 1 Glasses of wine per week History Drug Use No Allergies Allergen Reactions ??? Tetracyclines Nausea Only Medications: MAR and/or home medications have been reviewed. Physical Exam: Filed Vitals: 11/04/14 0640 BP: 128/74 Pulse: 71 Temp: 36.1 ??C (97 ??F) Resp: 18 Body mass index is 29.07 kg/(m^2). Height: 174 cm (5' 8.5) Weight - Scale: 87.998 kg (194 lb) Airway Assessment: Mallampati: II TM distance: >3 FB Neck ROM: full Cardiovascular Assessment: Rhythm: regular Rate: normal cardiovascular exam normal Pulmonary Assessment: breath sounds clear to auscultation pulmonary exam normal Dental Assessment: Misc Assessment: Patient is wearing No contact(s). IV access: Peripheral line Other exam findings: Broken molar- pt reports the broken piece has fallen out. 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 No hx of difficulty w anesthesia except coughing in PACU (discussed smoking cessation with her). Pt denies CP/SOB/PND/Orthopnea/GERD Occasional HB- food related. She declines pre-op placement of a scop patch. She believes that she will be fine. She is also awarethat she can request it in PACU if she changes her mind. Plan GA/ROBEL/VA and IV maint/P op PACU care and IV pain control. IC discussed and obtained. Region - Other Informed Consent: Anesthetic plan and risks discussed with patient. Plan discussed with FIDEL. Gavin. Assessment: documented in this encounter Plan of Treatment Not on filedocumented as of this encounter Visit Diagnoses Not on filedocumented in this encounter Administered Medications Inactive Administered Medications - up to 3 most recent administrations Medication Order MAR Action Action Date Dose Rate Site dexamethasone (DECADRON) injection Given 11/04/2014 7:44 AM EDT 8 mg PRN, Starting on Sun11/04/14 at 0744, Until Sun11/04/14 at 0826, Anesthesia Intra-op, Routine fentaNYL 50 mcg/mL multi-dose injection Given 11/04/2014 7:51 AM EDT 25 mcg PRN, Starting on Sun11/04/14 at 0751, Until Sun11/04/14 at 0826, Pain, Anesthesia Intra-op, Routine ketorolac (TORADOL) injection Given 11/04/2014 8:08 AM EDT 30 mg PRN, Starting on Sun11/04/14 at 0808, Until Sun11/04/14 at 0826, Pain, Anesthesia Intra-op, Routine lactated ringers infusion 1,000 mL New Bag 11/04/2014 7:26 AM EDT 1,000 mL, at 100 mL/hr, Intravenous, CONTINUOUS, Starting on Sun11/04/14 at 0700, Until Sun11/04/14 at 1210 lidocaine (PF) (XYLOCAINE) 100 mg/5 mL (2 %) Given 5 7:34 AM EDT 50 mg injection PRN, Starting on Sun11/04/14 at 0734, Until Sun11/04/14 at 0826, Anesthesia Intra-op, Routine ondansetron (ZOFRAN) injection Given 11/04/2014 8:04 AM EDT 8 mg PRN, Starting on Sun11/04/14 at 0804, Until Sun11/04/14 at 0826, Nausea, Anesthesia Intra-op, Routine propofol (DIPRIVAN) 10 mg/mL bolus injection Given 7:34 AM EDT 200 mg (Anesthesia) PRN, Starting on Sun11/04/14 at 0734, Until Sun11/04/14 at 0826, Anesthesia Intra-op propofol (DIPRIVAN) infusion New Bag 11/04/2014 7:34 AM 100 mcg/kg/min 52.8 mL/hr CONTINUOUS PRN, Starting on EDT Sun11/04/14 at 0734, Until Sun11/04/14 at 0817, Anesthesia Intra-op, Routine documented in this encounter Care Teams Economics Lecturer Relationship Specialty Start Date End Date Terry Dailey MD PCP - General 08/21/[address] [place] [address] documented as of this encounter
--- OUTSIDE RECORDS SUMMARY | 2021-12-27 00:20 | XMS_ITS | Encounter Summary ---
:1965 Author Organization [facility] [place] [address] Care Team Providers Name Role Phone Terry Dailey MD Primary Care Provider [phone] Reason for Visit Reason Comments Follow Up Surgery s/p mohs repair 11/04/14 Encounter Details Date Type Department Care Team Description 12/17/2014 Follow-Up Plastic Surgery at [facility]en Preciado MD Basal cell carcinoma of [facility] [place] [address] [place] [address] [phone] (Wo rk) Social History Tobacco Use Types Packs/Day Years Used Date Current Every Day Smoker Cigarettes 1 30 Smokeless Tobacco: Never Used Alcohol Use Standard Drinks/Week Comments Yes 0 (1 standard drink = 0.6 oz pure alcoho l) Sex Assigned at Date Recorded Not on file documented as of this encounter Progress Notes Bowen Preciado MD - 12/16/2014 2:32 PM EDT Plastic Surgery Post Op Note Reason for visit: F/U status post procedure Date of surgery: 11/04/14 Procedure(s): Moh's closure with nasolabial flap Pain: 0/10 HPI: Patient reports that she has been well since her surgery. The side of her left nose is itching,but she has been massaging the area. She is pleased with the results of the surgery. Examination: Patient is alert, conversant, comfortable, ambulating Incision: CDI, healing well, suture line well healed and symmetrical Good symmetry No collection, no erythema, no evidence of cellulitis. Impression: Felicita Collazo is a 49 y.o. female who was seen today for follow- up after the above procedure. Please see the operative note for details. She is healing well, and is pleased with the results. Plan: 1. Follow up: PRN 2. Sun exposure avoidance 3. Continue scar massage I, Sakina Mckenna, am acting as scribe for Dr. Preciado. All work documented was performed by Dr. Preciado. ???I performed the above scribed service and agree with the accuracy of the note?? Bowen Preciado MD documented in this encounter Plan of Treatment Not on filedocumented as of this encounter Visit Diagnoses Diagnosis Basal cell carcinoma of left ala nasi Basal cell carcinoma of skin of other an d unspecified parts of face documented in this encounter Care Teams Rehab Director Relationship Specialty Start Date End Date Terry Dailey MD PCP - General 08/21/[address] [place] [address] documented as of this encounter
--- OUTSIDE RECORDS SUMMARY | 2021-12-27 00:20 | XMS_ITS | Encounter Summary ---
:1965 Author Organization [facility] [place] [address] Care Team Providers Name Role Phone Terry Dailey MD Primary Care Provider [phone] Encounter Details Date Type Department Care Team Description 11/04/2014 Hospital Encounter Outpatient Surgery Lucius Preciaod ph, MD [facility] PLASTIC SURGE [place] [phone] Social History Tobacco Use Types Packs/Day Years [...] documented in this encounter Discharge Instructions Discharge Kaia Finch RN - 11/04/2014 7:00 AM EDT General [...] closest emergency room or call the hospital cane flume chute operator at [phone] and ask for physician manager transmission covering for your physician. Questions or problems after 5pm or on a weekend: Call the [facility] cane flume chute operator at and ask for the physician manager transmission covering for your doctor. Patient InstructionsFabrice Rivers [...] Preciado MD - 11/04/2014 8:34 AM EDT [facility] [place] Patient Name: Felicita Collazo : [id number] MR#: [id number] Case Date: 11/04/2014 Surgeon: Surgeon(s) and Role: [...] Operative Note Patient Name: Felicita Collazo : [id number] MR#: [id number] Case Date: 11/04/2014 Surgeon: Surgeon(s) and Role: [...] Diagnoses Not on filedocumented in this encounter Active and Recently Administered [...] Routine documented in this encounter Care Teams Plastic Frame Inserter Relationship Specialty Start Date End Date Terry Dailey MD PCP - General 08/21/[address] [place] [address] [address] [place] [address] documented as of this encounter
--- OUTSIDE RECORDS SUMMARY | 2021-12-27 00:21 | XMS_ITS | Encounter Summary ---
:[address] [facility] Address [address] [place] [address] Care Team Providers Name Role Phone Unknown, Provider Primary Care Provider Encounter Details Date Type Department Care Team Description 08/19/2020 Lab Requisition [facility] Outr Resulting Lab, Pathology & Laboratory Provider General acute hospital [address], [place] [id number] Social History Tobacco Use Types Packs/Day Years Used Date Never Assessed Sex Assigned at Date Recorded Not on file documented as of this encounter Plan of Treatment Not on filedocumented as of this encounter Procedures Procedure Name Priority Date/Time Associated Diagnosis Comme nts COVID-19 TEST [facility] Today 08/19/2020 11:10 LAB PCR EST COVID-19 TESTING Routine 08/19/2020 11:10 Results for this EST procedure are i n the results section. documented in this encounter Results COVID-19 TEST [facility] LAB PCR (08/19/2020 11:10 EST) Specimen Swab - Entire nasopharynx (body structur e) Performing Organization Address City/State/ZIP Code Phon e Number [facility] [address] [place] [address] SERVICES COVID-19 TESTING (08/19/2020 11:10 EST) COVID-19 rt-PCR Negative Negative [facility] Result Comment: [facility] This test has not been FDA c leared or approved. This test has been authorized by FDA under an EUA for use by authorized laboratories. This test has been authorized only for detection of nucleic acid fro SERVICES m 2018-nCoV, not for any oth er viruses or pathogens. This test is only authorized for the duration of the declaration that circumstances exist justifying the authorization of emergency use of in vitro d iagnostic tests for detectio n and/or diagnosis of 2019-nCoV under section 564(b)(1) of Act, 21 U.S.C ?? 360bbb-3(b) (1), unless the authorization is terminated or revoked sooner. Negative results do not prec lude 2019-nCoV infection and should not be used as the sole basis for treatment or other patient management decisions. Negative results must be combined with clinical observa tions, patient history, and epidemiological informatio n. This test was developed and its performance characteristics determined by [facility]. It has not been cleared or approved by the US Food and Drug Administration. FDA does not require this test to go through premarket FDA review. This t est is used for clinical purposes. It should not be regarded as investigational or for research. This laboratory is certified under the Clinical Laboratory Improvement Amendm ents (CLIA) as qualified to perform high complexity clinical laboratory testing. This test is based on the CD C COVID-19 Emergency Use Authorization (EUA) assay, with minor modification as defined by the FDA Performed on the [employer] Systemso 7 Flex RT-PCR System. Performing Lab [facility] SERVICES Specimen Swab Performing Organization Address City/State/ZIP Code Phon e Number [facility] [address] [place] [address] SERVICES documented in this encounter Visit Diagnoses Not on filedocumented in this encounter Care Teams Lumber Salvager Relationship Specialty Start Date End Date Unknown, Provider, PCP - General 08/16/14 documented as of this encounter
--- OUTSIDE RECORDS SUMMARY | 2021-12-27 00:21 | XMS_ITS | Encounter Summary ---
:1965 Author Organization [facility] [place] [address] Care Team Providers Name Role Phone Terry Dailey MD Primary Care Provider [phone] Reason for Referral Consultation (Routine) - Closed Specialty Diagnoses / Procedures Referred By Contact Refer red To Contact Dermatology Diagnoses BCC (basal cell carcinoma) Bowen Preciado MD Samie, Faramarz H, MD [facility]IC [facility] [place] [address] Fax: Referral ID Status Reason Start Date Expiration Date Visits V isits Requested Authorized [id number] Closed Consult, 09/11/2014 09/11/2015 3 3 Test & Treat Reason for Visit Reason Comments Advice Only bcc Encounter Details Date Type Department Care Team Description 09/11/2014 Office Visit Plastic Surgery at CLINIC, DR PAIZ BCC (b isael cell carcinoma); [facility] [place] Bowen Preciado MD [facility] [place] [address] Basal cell [place] [id number] Social History Tobacco Use Types Packs/Day Years [...] Sign Reading Time Taken Comments Blood Pressure 127/64 09/11/2014 9:46 AM EDT Pulse - - Temperature - - Respiratory Rate - - Oxygen Saturation - - Inhaled Oxygen Concentration - - Weight 88.1 kg (194 lb 3.2 oz) 09/11/2014 9:46 AM EDT Height 179.1 cm (5' 10.5) 09/11/2014 9:46 AM EDT Body Mass Index 27.47 09/11/2014 9:46 AM EDT documented in this encounter Patient Instructions Patient InstructionsMily Betts LPN - 09/11/2014 10:33 AM EDT You were given written and verbal preoperative instructions today. To prepare for your upcoming surgery, please review the Pre-Operative Instruction brochure that you were given at today's appointment. Feel free to call our office [phone] if you have any questionsor concerns. We monitor the phones from 8-Sunday through Sunday. documented in this encounter Progress Notes Mily Betts LPN - 09/11/2014 10:32 AM EDT Pre-Op Teaching for Surgery Surgery: Moh's repair BCC left ala Written and verbal pre-operative instructions were given and reviewed with patient: Patient was advised to discontinue use of NSAIDS and aspirin products (unless otherwise advised by patient's PCP/Engineer Assistant for cardiac symptoms), fish oil, Vitamin E and herbal supplements for 14 days prior to surgery, to perform the pre-op scrub, and to coordinate a ride home following surgery. Smoking status and medications were further reviewed to rule out/address current use of Nicotine, Coumadin, Plavix, Estrogen or Tamoxifen. Photos were taken Patient was instructed to call the clinic at with any questions or concerns prior to surgery. Bowen Preciado MD - 09/11/2014 9:51 AM EDT Plastic Surgery Consultation Note PCP:TERRY DAILEY MD CC: BCC left nasal ala HPI: Felicita Collazo is a 49 y.o. female, here in consultation at the request of Dr. Iniguez for evaluation and possible reconstruction following Mohs excision. She is accomanpied for todays visit. She had a crusted lesion on her left nasal ala that has been present for 4 months with crusting and enlargement . She was seen by a general surgeon: Dr. Iniguez who shaved the lesion and pathology revealed BCC. She has not gottent better with any treatment . She has another lesion on her nose that she would like to have looked at. She reports this lesion does not bleed, however, it becomes chaffed. Shehas not met with a [facility] surgeon. Past Medical History Diagnosis Date ??? Allergic state ??? Cancer : Past Surgical History Procedure Laterality Date ??? Genital surg proc, female unlisted ??? Unlisted evaluation service Current Outpatient Prescriptions on File Prior to Visit Medication Sig Dispense Refill ??? ibuprofen (ADVIL;MOTRIN) 600 mg tablet 600mg, PO, Four times daily ??? [DISCONTINUED] hydroCODone-acetaminophen (LORTAB) 7.5-500 mg per tablet 1-2 Tablet(s), PO, QHS,PRN No current facility-administered medications on file prior to visit. Allergies Allergen Reactions ??? Tetracyclines Nausea Only Soc Hx: History Social History ??? Marital Status: Spouse Name: N/A Number of Children: N/A ??? Years of Education: N/A Occupational History ??? Not on file. Social History Main Topics ??? Smoking status: Current Every Day Smoker -- 1.00 packs/day for 30 years Types: Cigarettes ??? Smokeless tobacco: Never Used ??? Alcohol Use: Yes 1 Glasses of wine per week ??? Drug Use: No ??? Sexual Activity: Not on file Other Topics Concern ??? Exercise: Patient Reported No ??? Abuse Or Threat: Physical, Sexual, Verbal No Social History Narrative ??? No narrative on file ROS: ROS: System Constitutional neg Eye neg ENT neg CV neg Resp neg GI neg neg Skin BCC Allergy neg Endocrine neg Neurologic neg Musculoskeletal neg Lymph neg Psych neg Y N All other systems reviewed and negative. x Examination: BP 127/64 Ht 179.1 cm (5' 10.5) Wt 88.089 kg (194 lb 3.2 oz) BMI 27.46 kg/m2 Gen: No acute distress, fluent, follows HEENT: Extra ocular movements intact. Neuro: motor and sensory exam grossly normal, alert oriented follows, tongue midline Heart: RRR. Nu murmurs Lungs: Clear to auscultation Pathology: On file from OSH, reviewed indicating BCC of left nasal ala Impression: Felicita Collazo presents with BCC, left nasal ala, diagnosed on pathology, requiring excision and reconstruction. She has not yet met with Dr. Howard to discuss Mohs excision. I discussed the nature of this lesion with the patient, educating her about the options for wound closure. I recommended a referral to Dr. Howard to discuss Mohs excision. We discussed the treatment options in detail including primary closure, local flap closure includingforehead flap, pedicled nasolabial flap, FTSG and composite auricular graft. We discussed that the recommended treatment depends on the extent of the excision and her aesthetic concerns. We discussed the risks of excision including infection, scar, bleeding, asymmetry, deformity, positive margins and the need for further surgery. The patient wishes to proceed. We discussed that her smoking status puts her at increased risk for wound healing complications. A referral to Dermatology will be placed today. We will plan to coordinate surgery following her consult with Dr. Howard for Moh's extirpation and then closure with us. Surgeon: SHAWN Duration: 60 mins Timeframe: coordinate Coordinated with: Dr. Howard Procedure: reconstruction of mohs defect Adjacent tissue transfer (<10cm,>10cm): Eyelid,nose, ear, lip: 05337, 15123 10580 (FTSG), 05558, (Forehead flap/nasolabial fold flap), 87049 (ear cartilage graft), (nasalseptum graft) Surgical site: Nose Side: Left Anesthesia: General Follow up: 5-7 Days PAT: Needs consult with Fatimah Shaw, am acting as scribe for Dr. Preciado. All work documented was performed by Dr. Preciado. ???I performed the above scribed service and agree with the accuracy of the note?? Bowen Preciado MD documented in this encounter Plan of Treatment Scheduled Referrals Name Type Priority Associated Order Schedule Diagnoses Referral to Outpatient Referral Routine BCC (basal cell Order ed: Dermatology carcinoma) 09/11/2014 documented as of this encounter Procedures Procedure Name Priority Date/Time Associated Diagnosis Comme nts ADJ.TISSUE TRANSFER, Routine 09/11/2014 10:31 AM EDT REARRANGEMENT, 10SQ.CM OR LESS, NOSE documented in this encounter Visit Diagnoses Diagnosis BCC (basal cell carcinoma) Basal cell carcinoma of skin, site unspe cified Basal cell carcinoma of left ala nasi Basal cell carcinoma of skin of other an d unspecified parts of face documented in this encounter Care Teams Parcel Contractor Relationship Specialty Start Date End Date Terry Dailey MD PCP - General 08/21/[address] [place] [address] documented as of this encounter
--- OUTSIDE RECORDS SUMMARY | 2021-12-27 00:21 | XMS_ITS | Encounter Summary ---
:1965 Author Organization [place] [address] Care Team Providers Name Role Phone Terry Dailey MD Primary Care Provider [phone] Encounter Details Date Type Department Care Team Description 09/16/2014 Telephone Dermatology at [facility] Salo Howard MD [address] [facility] [place] [address] [facility]-DERMATOLOGY [phone] [place], [place] [address] (Wo rk) Social History Tobacco Use Types Packs/Day Years Used Date Current Every Day Smoker Cigarettes 1 30 Smokeless Tobacco: Never Used Alcohol Use Standard Drinks/Week Comments Yes 0 (1 standard drink = 0.6 oz pure alcoho l) Sex Assigned at Date Recorded Not on file documented as of this encounter Miscellaneous Notes Telephone Encounter - Valeria Spencer LPN - 09/16/2014 4:21 PM EDT Left message in regards to scheduling Mohs surgery. Valeria Spencer LPN documented in this encounter Plan of Treatment Not on filedocumented as of this encounter Visit Diagnoses Not on filedocumented in this encounter Care Teams Water Registrar Relationship Specialty Start Date End Date Terry Dailey MD PCP - General 08/21/[address] [place] [address] documented as of this encounter
--- OUTSIDE RECORDS SUMMARY | 2021-12-27 00:21 | XMS_ITS | Encounter Summary ---
:1965 Author Organization [facility] Address [address] [place] [address] Care Team Providers Name Role Phone Unavailable Primary Care Provider Unavailable Encounter Details Date Type Department Care Team Description 11/10/2003 Results Only [facility] - Onesimo Abreu MD conversion [address] [place] [address] Social History Tobacco Use Types Packs/Day Years Used Date Never Assessed Sex Assigned at Date Recorded Not on file documented as of this encounter Plan of Treatment Not on filedocumented as of this encounter Procedures Procedure Name Priority Date/Time Associated Diagnosis Comme nts CYTOPATHOLOGY Routine 11/10/2003 0:00 EDT Results for this procedure are i n the results section . documented in this encounter Results CYTOPATHOLOGY (11/10/2003 0:00 EDT) Pathology Report: CYTOPATHOLOGY REPORT [facility] Reports generated via electronic interface contain carlita ginal data; however they are lacking the format of the original re port. Caution should be taken when reading/interpreting unfo rmatted reports. Name: ? FELICITA COLLAZO ? Accession #: ? [id number] : ? 1965 (Age: 38) ??F ?Collect Date: ? 06/2003 Location: ? [facility] ? Receive Date : ? 11/13/2003 Provider: ?ONESIMO RODRIGUEZ MD Copy to: ? Specimen/Source: ?ThinPrep Pap Test, Cervix/ Endocervix Last Menstrual Period: ? 03/13/03 Hormonal/Contraceptive Status: ? Tubal ligation Previous Gynecologic Pathology: ? HSIL: 03/13 ADRIANA II: 03/13 & 04/13 ADRIANA III: 03/13 & 04/13 Treatment History: ? Cervical biopsy: ADRIANA II-III 03/13 LEEP: ADRIANA II-III 04/13 Miscellaneous treatment: ECC HSIL 03/13 ? SPECIMEN ADEQUACY ? Satisfactory for Evaluation - transformation zone component present GENERAL CATEGORIZATION ? Negative for Intraepithelial Lesion or Malignan cy ? Document reviewed and electronically signed by: ? RUMA Sarah(ASCP) ? Report Date: ??11/17/2003 12:23 End of Report Specimen Performing Organization Address City/State/ZIP Code Phon e Number [facility] [address] [place] [address] SERVICES [facility] [address] [place] [address] documented in this encounter Visit Diagnoses Not on filedocumented in this encounter
--- OUTSIDE RECORDS SUMMARY | 2021-12-27 00:21 | XMS_ITS | Encounter Summary ---
:1965 Author Organization [facility] Address [address] [place] [address] Care Team Providers Name Role Phone Unavailable Primary Care Provider Unavailable Encounter Details Date Type Department Care Team Description 04/22/2003 Results Only [facility] - Onseimo Abreu MD conversion [address] [place] [address] Social History Tobacco Use Types Packs/Day Years Used Date Never Assessed Sex Assigned at Date Recorded Not on file documented as of this encounter Plan of Treatment Not on filedocumented as of this encounter Procedures Procedure Name Priority Date/Time Associated Diagnosis Comme nts SURGICAL PATHOLOGY Routine 04/22/2003 0:00 EST Re sults for this procedure are i n the results section. documented in this encounter Results SURGICAL PATHOLOGY (04/22/2003 0:00 EST) Pathology Report: SURGICAL PATHOLOGY REPORT [facility] Reports generated via electronic interface contain carlita ginal data; LAB however they are lacking the format of the original re port. Caution should be taken when reading/interpreting unfo rmatted reports. Name: ? FELICITA COLLAZO ? Accession #: ? [id number] ? : ? 1965 (Age: 38) ??F ? Collect Date: ? 04/22/2003 ? Location: ? [facility] ? Receive Date: ? 003 ? Provider: ONESIMO RODRIGUEZ MD Copy to: FERNANDO CAMACHO MD ? Final Pathologic Diagnosis: ? Cervix, LEEP excision: 1. ?High grade squamous intraepithelial l esion (ADRIANA II-III). ? - High grade dysplasia extends into endocervica l glands. - Three of six blocks involved. - Inked resection margins negative for dysplasia. 2. ?Microglandular hyperplasia. 3. ?Acute and chronic cervicitis. Document reviewed and electronically signed by: Rebeca Peña [facility] Report ??Date: 04/27/2003 16:39 By the signature above, the attending physician certif ies that he/she has personally conducted a gross and/or microscopic examin ation of the described specimens and rendered or confirmed the above diagnosi s. Specimen(s) Received: ? LEEP cx Clinical History: ? 03/13 Cx bx; ADRIANA II-III Gross Description: ? Received in formalin labelled Molina stings and cx LEEP is an unoriented annular LEEP excision of cer vix which measures 1.8 x 1.5 cm and is excised to a depth of 0.9 cm. ??There is a slit-like cervical os and the ectocervical mucosa is pink-brasher and smooth. ??The squamocolumnar junction is ill-defined. ??The apparent endocervical mucosa is brasher-yellow and slightl y granular. ??No gross lesions are identified. ??The endocervic al soft tissue marginis inked blue and the ectocervical soft tissue margin is i nked black. ??The specimen is serially sectioned radially and submitted entirel y as (A1) ??(A6). ??(Dr. Russ)/[facility] End of Report Specimen Performing Organization Address City/State/ZIP Code Phon e Number [facility] [address] [place] [address] SERVICES [facility] [address] [place] [address] documented in this encounter Visit Diagnoses Not on filedocumented in this encounter
--- OUTSIDE RECORDS SUMMARY | 2021-12-27 00:21 | XMS_ITS | Encounter Summary ---
:1965 Author Organization [facility] Address [address] [place] [address] Care Team Providers Name Role Phone Unavailable Primary Care Provider Unavailable Encounter Details Date Type Department Care Team Description 03/16/2003 Results Only [facility] - Onesimo Abreu MD conversion [address] [place] [address] Social History Tobacco Use Types Packs/Day Years Used Date Never Assessed Sex Assigned at Date Recorded Not on file documented as of this encounter Plan of Treatment Not on filedocumented as of this encounter Procedures Procedure Name Priority Date/Time Associated Diagnosis Comme nts SURGICAL PATHOLOGY Routine 03/16/2003 0:00 EDT Re sults for this procedure are i n the results section. documented in this encounter Results SURGICAL PATHOLOGY (03/16/2003 0:00 EDT) Pathology Report: SURGICAL PATHOLOGY REPORT [facility] Reports generated via electronic interface contain carlita ginal data; LAB however they are lacking the format of the original re port. Caution should be taken when reading/interpreting unfo rmatted reports. Name: ? FELICITA COLLAZO ? Accession #: ? [id number] ? : ? 1965 (Age: 38) ??F ? Collect Date: ? 03/16/2003 ? Location: ? [facility] ? Receive Date: ? 003 ? Provider: ONESIMO RODRIGUEZ MD Copy to: FERNANDO CAMACHO MD ? Final Pathologic Diagnosis: A. ?Endometrium, curettage: 1. ?Detached squamous epithelium with hig h grade squamous intraepithelial lesion (HSIL). 2. ?Interphase endometrium and lower segm ent endometrium. B. ?Peritoneum, cul-de-sac, biopsy: 1. ?Endometriosis with chronic inflammati on. C. ?Pelvic sidewall, biopsy: 1. ?Endometriosis. 2. ?Fibrosis and chronic inflammation. D. ?Fallopian tube, right, resection: 1. ?Paratubal cyst. E. ?Ovary, right, cyst, resection: 1. ?Corpus luteum (multiple pieces). Comment: ? This case has been presented at the intradepart mental consultation conference on 03/20/03. ??(Dr. Sellers)/ Document reviewed and electronically signed by: Jeanie Sellers MD Report ??Date: 03/20/2003 15:47 By the signature above, the attending physician certif ies that he/she has personally conducted a gross and/or microscopic examin ation of the described specimens and rendered or confirmed the above diagnosi s. Specimen(s) Received: A. ?Endometrial curettings B. ?Cul-de-sac bx C. ?Right pelvic sidewall D. ?Right tube E. ?Right ovarian cyst Clinical History: ? 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 Received in formalin labelled [place] and endometrial curetting is a 3.5 x 2.5 x 0.4 cm aggregate of pink soft tissue admixed with blood clot. ??The specimen is entirely submitted as (A1) and (A2). Received in formalin labelled [place] and cu l-de-sac bx is a 0.6 x 0.4 x 0.3 cm pink-harp soft tissue biopsy. ??The specimen is entirely submitted as (B). Received in formalin lukasz d [place] and right pelvic sidewall is a 3.0 x 0.8 x 0.5 cm pink fibromembranous portion of indurated soft tissue. ??The specimen is sectioned and is entirely submitted as (C) . Received in formalin labelled [place] and R tube is a 3.0 x 0.6 x 0.5 cm fimbriated segment of conges zenobia fallopian tube. ??The fallopian tube displays a 0.7 cm thin-walled clear flu id filled peritubal cyst. ??The tube is sectioned to reveal a pinpoint lumen. ??No other discrete lesions o r masses are evident. Telephone Repairer portions of the tube and cyst are submi tted as (D). Received in formalin lukasz d [place] and right ovarian cyst is a 2.0 x 1.1 x 0.3 cm aggregate of harp-pink membranous porti ons of congested soft tissue. The specimen is entirely submitted as (E). ??(Alberta Betancourt )/[facility] ?? End of Report Specimen Performing Organization Address City/State/ZIP Code Phon e Number [facility] [address] [place] [address] SERVICES [facility] [address] [place] [address] documented in this encounter Visit Diagnoses Not on filedocumented in this encounter
--- OUTSIDE RECORDS SUMMARY | 2021-12-27 00:21 | XMS_ITS | Encounter Summary ---
:1965 Author Organization [facility] Address [address] [place] [address] Care Team Providers Name Role Phone Unknown, Provider Primary Care Provider Encounter Details Date Type Department Care Team Description 09/27/2021 Lab Requisition [facility] Outr Resulting Lab, Pathology & Laboratory Provider [facility] [address] [place] [address] Social History Tobacco Use Types Packs/Day Years Used Date Never Assessed Sex Assigned at Date Recorded Not on file documented as of this encounter Plan of Treatment Not on filedocumented as of this encounter Procedures Procedure Name Priority Date/Time Associated Diagnosis Comme nts HEPATITIS C AB W Routine 09/27/2021 12:25 Results for this REFLEX TO HCV RNA EDT procedure are in BY PCR the results section. documented in this encounter Results HEPATITIS C AB W REFLEX TO HCV RNA BY PCR (09/27/2021 12:25 EDT) Pathologist Sig nature Hep C Antibody Negative Negative [facility] Specimen Blood - Venous blood (substance) Performing Organization Address City/State/ZIP Code Phon e Number [facility] [address] [place] [address] SERVICES documented in this encounter Visit Diagnoses Not on filedocumented in this encounter Care Teams Transportation Associate Relationship Specialty Start Date End Date Unknown, Provider, PCP - General 08/16/14 documented as of this encounter
--- OUTSIDE RECORDS SUMMARY | 2021-12-27 00:21 | XMS_ITS | Encounter Summary ---
:1965 Author Organization [facility] Address [address] [place] [address] Care Team Providers Name Role Phone Unavailable Primary Care Provider Unavailable Encounter Details Date Type Department Care Team Description 10/29/2000 Results Only [facility] - Onesimo Abreu MD conversion [address] [place] [address] Social History Tobacco Use Types Packs/Day Years Used Date Never Assessed Sex Assigned at Date Recorded Not on file documented as of this encounter Plan of Treatment Not on filedocumented as of this encounter Procedures Procedure Name Priority Date/Time Associated Diagnosis Comme nts SURGICAL PATHOLOGY Routine 10/29/2000 0:00 EDT Re sults for this procedure are i n the results section. documented in this encounter Results SURGICAL PATHOLOGY (10/29/2000 0:00 EDT) Pathology Report: SURGICAL PATHOLOGY REPORT [facility] Reports generated via electronic interface contain carlita ginal data; LAB however they are lacking the format of the original re port. Caution should be taken when reading/interpreting unfo rmatted reports. Name: ? FELICITA COLLAZO ? Accession #: ? [id number] ? : ? 1965 (Age: 35) ??F ? Collect Date: ? 10/29/2000 ? Location: ? [facility] ? Receive Date: ? 001 ? Provider: ONESIMO RODRIGUEZ MD Copy to: FERNANDO LEE MD ? Final Pathologic Diagnosis: ? Fallopian tube and ovary, left, salpingo-oophor ectomy: 1. ?Mucinous cystadenoma. 2. ?Fallopian tube with no pathologic fea tures. Document reviewed and electronically signed by: MARIA ESTHER DOMINGUEZ MD Report ??Date: 10/31/2000 15:00 By the signature above, the attending physician certif ies that he/she has personally conducted a gross and/or microscopic examin ation of the described specimens and rendered or confirmed the above diagnosi s. Specimen(s) Received: ? Left ovary Clinical History: ? Persistent septated ovarian mass over preceding approximately 1 year Intraoperative Interpretation: ? Ovary, left, oophorectomy and cystectomy: ??Sim ple cyst, no grossly suspicious lesion, defer to permanents, gross exam only ??Dr. Lane Lee; 10/29/00 Gross Description: ? Received fresh labelled [place] and L ovary is a plastic bag containing a previously drained and collapsed cyst whi ch weighs 49 grams (without fluid) and measures 12.4 x 7.1 x 0.5 cm. ??Th e external surface is brasher-pink and mildly hyperemi c. ??It has an overall smooth surface. ??The internal cystic lining is also brasher-pi nk with focal hyperemia. ??No papillary excrescences or other abnormalities are n oted. ??There is a portion of fallopian tube attached to the cyst which measures 5.1 cm in length by 0 .5 cm in diameter. ??The cyst wall varies in thickness from 0.1 to 0.4 cm (which may represent residual ovarian parenchyma). ??Additionally, several somewhat thickened cystic wall hematomas are noted. ??Demurrage Clerk sections are sub mitted as (A1) through (A4). ??(Dr. Delgado)/g End of Report Specimen Performing Organization Address City/State/ZIP Code Phon e Number [facility] [address] [place] [address] SERVICES [facility] [address] [place] [phone] documented in this encounter Visit Diagnoses Not on filedocumented in this encounter
--- OUTSIDE RECORDS SUMMARY | 2021-12-27 00:21 | XMS_ITS | Clinical Summary ---
:1965 Author Organization [facility] Address [address] [place] [address] Care Team Providers Name Role Phone Unknown, Provider Primary Care Provider Encounters Date Type Specialty Care Team Description 09/27/2021 Lab Requisition Clinical Laboratory Outr Resulting Lab , Provider from Last 3 Months Social History Tobacco Use Types Packs/Day Years Used Date Never Assessed Sex Assigned at Date Recorded Not on file Plan of Treatment Health Maintenance Due Date Last Done Comments COVID-19 Vaccine (1) 1970 Hepatitis C Screen Completed 09/27/2021 Procedures Procedure Name Priority Date/Time Associated Diagnosis Comme nts HEPATITIS C AB W Routine 09/27/2021 12:25 Results for this REFLEX TO HCV RNA EDT procedure are in BY PCR the results section. from Last 3 Months Results HEPATITIS C AB W REFLEX TO HCV RNA BY PCR (09/27/2021 12:25 EDT) Pathologist Sig nature Hep C Antibody Negative Negative [facility] Specimen Blood - Venous blood (substance) Performing Organization Address City/State/ZIP Code Phon e Number [facility] [address] [place] [address] SERVICES from Last 3 Months Care Teams Dev Ops Engineer Relationship Specialty Start Date End Date Unknown, Provider, PCP - General 08/16/14
--- OUTSIDE RECORDS SUMMARY | 2021-12-27 00:21 | XMS_ITS | Encounter Summary ---
:1965 Author Organization [facility] Address [address] [place] [address] Care Team Providers Name Role Phone Unavailable Primary Care Provider Unavailable Encounter Details Date Type Department Care Team Description 03/02/2004 Results Only [facility] - Onesimo Abreu MD conversion [address] [place] [id number] Social History Tobacco Use Types Packs/Day Years Used Date Never Assessed Sex Assigned at Date Recorded Not on file documented as of this encounter Plan of Treatment Not on filedocumented as of this encounter Procedures Procedure Name Priority Date/Time Associated Diagnosis Comme nts SURGICAL PATHOLOGY Routine 03/02/2004 0:00 EDT Re sults for this procedure are i n the results section. documented in this encounter Results SURGICAL PATHOLOGY (03/02/2004 0:00 EDT) Pathology Report: SURGICAL PATHOLOGY REPORT [facility] Reports generated via electronic interface contain carlita ginal data; LAB however they are lacking the format of the original re port. Caution should be taken when reading/interpreting unfo rmatted reports. Name: ? FELICITA COLLAZO ? Accession #: ? [id number] ? : ? 1965 (Age: 39) ??F ? Collect Date: ? 03/02/2004 ? Location: ? [facility] ? Receive Date: ? 004 ? Provider: ONESIMO RODRIGUEZ MD Copy to: FERNANDO CAMACHO MD ? Final Pathologic Diagnosis: ? Uterus, cervix, right fallopian tube, and ovary, hysterectomy, unilateral salpingo-oophorectomy: 1. ?Endometrium: ? - Inactive endometrium. 2. ?Myometrium: ? - No pathologic features. 3. ?Cervix: ? - Parakeratosis. - Chronic cervicitis. - Focal serosal fibrosis. 4. ?Uterine serosa: ? - No pathologic features. 5. ?Right ovary: ? - Serosal fibrosis. - Hemorrhagic corpus luteal cyst. 6. ?Right fallopian tube: ? - Status post tubal ligation. Document reviewed and electronically signed by: WESLEY MUNOZ MD Report ??Date: 03/05/2004 09:11 By the signature above, the attending physician certif ies that he/she has personally conducted a gross and/or microscopic examin ation of the described specimens and rendered or confirmed the above diagnosi s. Specimen(s) Received: ? Uterus, cervix, R tube and ovary Clinical History: ? Endometriosis, R ovarian cyst Gross Description: ? Received in formalin labelled [place] and uterus, cervix, right tube and ovary is a 108 gram hysterectomy specimen to incl ude corpus uteri and cervix, right ovary and righ t fallopian tube and measures 9.5 cm from cervix to fundus, 8.2 cm from cornu to cornu and 4.1 cm from anterior to posterior. ??The serosa is red-pink, smooth and glistenin g. ??The 3.5 cm in length by 2.6 cm in width endometrial cavity tu ears normal in size and shape. ??The endometrium is brasher-pink, smooth and glisten ing with adherent clotted blood averaging 0.1 cm in thickness. ??The myometrium is brasher-pink, reticulated, averaging 2.2 cm in thickness and displays a single, ill-defined 0.3 x 0.2 x 0.2 cm white unremarkable whorled nodule. ??The cervical canal is w remy-brahser, smooth and glistening. ??The endocervix is white-brasher and firm; the ectocervix is brasher-pink, smooth and glistening with a central 0.6 cm in d iameter patent os. ??The 22.4 gram distended right ovary measures 3.7 x 3.6 x 2.6 cm and displays a smooth red-pink serosa with focal h emorrhagic adhesions and numerous subserosal cysts. Sectioning reveals a 2.7 x 2 .5 x 2.0 cm smooth lined cystic space with adherent clotted blood containing 2 c c of blood tinged clear fluid. ??Within this lining, there are four additional sm ooth lined cystic structures containing blood tinged fluid and average 0.9 x 0.3 x 0.3 cm. ??Within the ova abdifatah stroma, a corpus albicans is identified. ??Th ere is a 0.7 cm in length by 0.4 cm in diameter tubal structure with a blunted end which displays a paratuba l cyst is a potential right fallopian tube. ??No other structure consistent with fallopian tube is identified. ??Trainman sections are submitted as follows: BLOCK DOAN A1 ?A nterior cervixA2 ?Posterior cervixA3 ? Anterior endomyometrium A4 ?Posterior e ndomyometrium to include single ill-defined whorled nodule A5 ?Trainman serosa from posterior aspect A6 ?Trainman sections of largest ov james cyst to include subserosal cyst A7, A8 ? Repres entative sections of cyst to include possible fallopian tube (A. Chen)/tmg ?? End of Report Specimen Performing Organization Address City/State/ZIP Code Phon e Number [facility] [address] [place] [address] SERVICES [facility] [address] [place] [address] documented in this encounter Visit Diagnoses Not on filedocumented in this encounter
--- OUTSIDE RECORDS SUMMARY | 2021-12-27 00:21 | XMS_ITS | Encounter Summary ---
:1965 Author Organization [facility] [place] [address] Care Team Providers Name Role Phone Terry Dailey MD Primary Care Provider [phone] Encounter Details Date Type Department Care Team Description 10/01/2014 Telephone Dermatology at [facility] Valeria Bryant LPN [address] [place] [address] Social History Tobacco Use Types Packs/Day Years Used Date Current Every Day Smoker Cigarettes 1 30 Smokeless Tobacco: Never Used Alcohol Use Standard Drinks/Week Comments Yes 0 (1 standard drink = 0.6 oz pure alcoho l) Sex Assigned at Date Recorded Not on file documented as of this encounter Miscellaneous Notes Telephone Encounter - Valeria Spencer LPN - 10/01/2014 2:07 PM EDT Left message for patient requesting call back in order to complete Mohs survey prior to consult on 10/06/14. Valeria Spencer LPN documented in this encounter Plan of Treatment Not on filedocumented as of this encounter Visit Diagnoses Not on filedocumented in this encounter Care Teams Accelerator Technician Relationship Specialty Start Date End Date Terry Dailey MD PCP - General 08/21/[address] [place], [place] [id number] documented as of this encounter
--- OUTSIDE RECORDS SUMMARY | 2021-12-27 00:21 | XMS_ITS | Encounter Summary ---
:1965 Author Organization [facility] [place] [address] Care Team Providers Name Role Phone Terry Dailey MD Primary Care Provider [phone] Reason for Visit Reason Comments Basal Cell Carcinoma Encounter Details Date Type Department Care Team Description 11/03[facility]2014 [facility] cell [facility] carcinoma of skin[facility] [address] [place] [address] [facility] [place], [place] [address] Social History Tobacco Use Types Packs/Day Years Used Date Current Every Day Smoker Cigarettes 1 30 Smokeless Tobacco: Never Used Alcohol Use Standard Drinks/Week Comments Yes 0 (1 standard drink = 0.6 oz pure alcoho l) Sex Assigned at Date Recorded Not on file documented as of this encounter Last Filed Vital Signs Vital Sign Reading Time Taken Comments Blood Pressure 132/69 11/03/2014 7:44 AM EDT Pulse 72 11/03/2014 7:44 AM EDT Temperature - - Respiratory Rate 18 11/03/2014 7:44 AM EDT Oxygen Saturation - - Inhaled Oxygen Concentration - - Weight 86.2 kg (190 lb) 11/03/2014 7:44 AM EDT Height 174 cm (5' 8.5) 11/03/2014 7:44 AM EDT Body Mass Index 28.47 11/03/2014 7:44 AM EDT documented in this encounter Patient Instructions Patient InstructionsFlor Romero LPN - 11/03/2014 9:09 AM EDT General Post-Operative Instructions Do not drink alcohol or take any medications containing aspirin, ibuprofen, or Vitamin E for the first two days after surgery unless it has been prescribed by a physician. These may increase the changeof bleeding. Do not smoke for a minimum of 5 days after surgery. Do not get your bandage wet. Avoid public pools and hot tubs As a rule, no exercise is permitted for 7 days. Avoid heavy lifting or any activity that will pull or strain the wound for 3 weeks minimum. Certain surgeries will require longer periods off from exercise as instructed by your doctor. Potential Complications Pain: Most patients have little or no pain. If your wound hurts, apply an ice pack for 15 minutes out of every hour until bedtime. Ice compresses should be done OVER the pressure bandage. Do not apply ice directly on the skin. Ice should be placed in a plastic bag, then wrapped in a towel and applied to the bandaged wound. A bag of frozen peas wrapped in a towel also works well. If your wound still hurts, you can take Tylenol 500 mg every 4-6 hours. Increasing pain, or pain notrelieved by Tylenol, should be reported to our office. Infection: Infection is not common when the wound is well cared for. [place] drainage or slight yellow film on your bandage or open wound is normal and is not an infection. It is also normal for the edgesof the wound to be pink or red, but redness should not spread out beyond the wound edges. If you notice any of these signs of infections, please call the clinic. ??? Increased pain or swelling around the wound ??? Redness spreading out from the wound ??? Green, thick, or foul smelling wound drainage ??? Fever or chills Bleeding: It is normal to see a small amount of blood on the pressure bandage when you remove it. Ifblood leaks out of the bandage within the first 48 hours, hold firm pressure directly over the top of the bandage without removing it for 15 minutes. If bleeding does not stop, hold pressure for another 15 minutes. If bleeding continues, call our office immediately or go to your local urgent care or emergency room. If blood accumulates under the sutured area, this is called a hematoma. Your wound will become swollen and very hard to the touch. You may experience increasing amounts of pain. This requires attention, and our office should be notified. Swelling and Bruising: These side effects are fairly common, but usually resolve in 2-3 weeks. Areasof the mouth and eye can last longer. Swelling and bruising can be reduced by applying an ice pack over the dressing for 15 minutes out of every hour for the rest of the day of surgery. Swelling around the eyes and neck are normal if you have had surgery to the forehead, eye area, nose, or cheeks. In fact, one or both eyes may swell shut. Swelling will be worse in the morning and improve during the day. If your wound is on your face, head or neck: ??? Sleep with your head raised on 2 pillows to reduce swelling ??? Do no bend over with your head lower then the level of your heart. Bend at the knees and not thewaist. If your wound is on your arm or leg: ??? Keep your arm or leg raised above your heart as much as you can, such as putting your leg on a pillow then lying down, particularly for the first 48 hours. This will help prevent swelling and promote healing. Wounds on the arm or leg may heal more slowly than other areas. ??? Use compression stocking or reshma wrap if instructed to do so. Scarring: There is always some scarring from any wound. Some people may have thickened scars, but these often flatten out in 3-6 months. Occasionally injections are used to help flatten thick scars. Time improves most scars. Wound healing actually takes 1-2 years before it is completely finished. Cover-up makeup may be used after the wound is healed. Other questions or concerns? Please do not hesitate to contact us. During regular business hours youcan call the clinic at . After 5PM and on weekends, please call the hospital number and ask for the Assembly Cleaner space control agent. documented in this encounter Progress Notes Salo Howard MD - 11/03/2014 9:13 AM EDT Operative Report Patient name: Felicita Collazo : 1965 Date: 11/03/2014 Staff Surgeon: Salo Howard MD, PhD Socially Responsible Investment Adviser I: Lillian Branch, Valeria Low Transit Mechanic: Virgie Horn Pre-operative diagnosis: Basal Cell Carcinoma Post-operative diagnosis: Basal Cell Carcinoma Location: Left ala Procedure: Mohs micrographic surgery Indication for Mohs micrographic surgery: Critical Anatomic Location Stages: 1 Final defect size: 1.5 x 0.9 cm Stage I The nature and purpose of the procedure, associated risks, possible consequences and complications,and alternative forms of treatment were explained in detail. Informed consent and permission to takephotographs were obtained. The site was confirmed with the patient/authorized personal banking representative/referring physician and a pre-operative time-out was conducted with no unresolved discrepancies noted. Localanesthesia was obtained with a buffered solution of 1% lidocaine with 1:100,000 epinephrine. The surgical site was prepped and draped in the usual sterile manner. Clinically apparent tumor was removed by excision with clinical margins and sent for step sectioning. With all visible gross tumor completely excised, the borders of the tumor were excised as a complete layer 2-3mm in thickness. Hemostasis was achieved by electrocoagulation. The excised tissue was oriented and divided into 2 sections, chromacoded, and submitted for frozen sections. The patient tolerated the procedure well and without complications. On microscopic evaluation of the frozen sections, no residual tumor was identified on the deep or outer border of the sections. The final size of the defect after complete tumor removal was 1.5 x 0.9 cm, extending to muscle. Given the size and the location of the post-Mohs defect, the patient was referred to Dr. Bowen Preciado for repair. The surgical site was cleaned and gelfoam was placed in the wound bed. A white petrolatum and Xeroform gauze pressure dressing applied. The patient tolerated the procedure well and without complications and was given both verbal and written instruction on postoperative wound care. The patient was discharged in good condition. Salo Howard MD, PhD documented in this encounter Plan of Treatment Not on filedocumented as of this encounter Visit Diagnoses Diagnosis BCC (basal cell carcinoma of skin) Basal cell carcinoma of skin, site unspe cified documented in this encounter Care Teams Revenue Research Analyst Relationship Specialty Start Date End Date Terry Dailey MD PCP - General 08/21/[address] [place] [address] documented as of this encounter
--- OUTSIDE RECORDS SUMMARY | 2021-12-27 00:21 | XMS_ITS | Encounter Summary ---
:1965 Author Organization [facility] [place] [address] Care Team Providers Name Role Phone Terry Dailey MD Primary Care Provider [phone] Reason for Visit Reason Comments Basal Cell Carcinoma Encounter Details Date Type Department Care Team Description 10/06/2014 [facility] cell [facility] carcinoma of skin) [address] [place] [address] [facility] [place], [place] [address] Social History Tobacco Use Types Packs/Day Years Used Date Current Every Day Smoker Cigarettes 1 30 Smokeless Tobacco: Never Used Alcohol Use Standard Drinks/Week Comments Yes 0 (1 standard drink = 0.6 oz pure alcoho l) Sex Assigned at Date Recorded Not on file documented as of this encounter Last Filed Vital Signs Vital Sign Reading Time Taken Comments Blood Pressure 144/82 10/06/2014 2:05 PM EDT Pulse 83 10/06/2014 2:05 PM EDT Temperature - - Respiratory Rate 20 10/06/2014 2:05 PM EDT Oxygen Saturation - - Inhaled Oxygen Concentration - - Weight 86.2 kg (190 lb) 10/06/2014 2:05 PM EDT Height 174 cm (5' 8.5) 10/06/2014 2:05 PM EDT Body Mass Index 28.47 10/06/2014 2:05 PM EDT documented in this encounter Patient Instructions Patient InstructionsFlor Romero LPN - 10/06/2014 2:24 PM EDT Mohs Micrographic Surgery Date: Dear: You have been scheduled for Mohs Surgery with Dr. Salo Howard on: Mohs surgery is a technique to treat and remove skin cancers under complete microscopic control. It offers the best cure rate, but, because of its complexity, is reserved for those cancers where other treatments have failed or are less likely to result in a cure. It is also used for skin cancers located in critically important cosmetic areas like the nose, ears, or eyelids. Pre-Surgery Instructions: ??? Stop or decrease smoking 5 days prior to surgery. ??? Take ALL medications as directed by your Primary Care Physician on the morning of your surgery. You will be required to update your INR no greater than one week prior to your procedure if you are taking warfarin (Coumadin). ??? Discontinue Vitamin E and any herbal remedies as soon as you receive this handout. ??? Discontinue alcohol and alcohol containing medications (such as NyQuil) 5 days prior to surgery. ??? Purchase wound care supplies prior to surgery. Morning of Surgery Instructions: ??? You should eat a normal breakfast and continue drinking fluids - if caffeine makes you nervous or jittery, please refrain from consuming caffeine containing products on the morning of surgery. If you are scheduled for reconstructive surgery in the Operating Room on the same day as your Mohs procedure, follow the guidelines given to you by the Same Day Surgery Unit regarding food/fluid intake. ??? Take ALL routine medications on schedule unless otherwise instructed. Please bring all medication with you on the day of surgery. ??? Wear comfortable, warm, loose-fitting clothing - a button down shirt is preferred ??? Do not wear perfume, cologne, or makeup ??? Do not remove dentures ??? Shower and shampoo your hair before surgery as your initial bandage may have to remain dry for up to 48 hours. Supplies you will need to purchase prior to your surgery: ??? Clean cotton swabs (Q-tips) ??? A tube of Aquaphor or white petrolatum (avoid jars) -Antibiotic ointment is not recommended as many patients are now becoming allergic to topical antibiotics. An allergic reaction can turn the skinred with swelling and weeping, mimicking an infection. New data has come out stating that clean surgi yelena wounds do not need antibiotic ointment and should be dressed with plain ointment. ??? Non-stick gauze (Telfa pads) or Band-Aids - It is good to have some non- stick bandages that can be cut and taped over the wound. We use a brand called Telfa but any non-stick bandage will work. Askyour pharmacist what is available in the store. ??? Paper Tape - It will allow the bandage to stick, but will not harm the skin. It is usually well tolerated by patients that have tape allergies. One roll is all you will need. Some patients require bandaging for 1-2 weeks, while others may require bandages for longer periods of time. We cannot determine this prior to your surgery; therefore, you should have at least one week???s worth of supplies. What to Expect the Day of Surgery: Briefly, the technique is performed as follows: The location of your skin cancer is identified and numbed with a local anesthetic. All visible tumor is removed as well as a thin margin of surrounding skin. Bleeding is stopped and a bandage is placed over the wound. The tissue is then taken to the lab,in our office, where it is processed, stained and placed on a slide. This process will take approximately 60-90 minutes. The physician will then look at the slides under a microscope to identify any remaining tumor. If there is any tumor visible, you will be brought back into the procedure room and a second layer of tissue will be removed. The process continues until no further tumor is identified. On average, patients have 2-3 layers taken, depending on the size and depth of the tumor. On the day of our surgery, the physician will discuss with you options for wound reconstruction and healing. Reconstructive surgery cannot be predetermined as it depends on the size and depth of the wound after removal of the lesion as well as each individual???s needs. Because we do not know how extensive your skin cancer is, you may be here for the majority of the day. It is a good idea to bring a book, or other materials to keep you occupied. Our facility does not offer a guest BiOM-Fi network at this time. We also recommend you bring a lunch or light snack. There are vending machines available with limited food options, as well as complimentary snack foods but no cafeteria or restaurants. For your comfort, we recommend that you dress in layers. We recommend that you have someone with you to keep you company, and unless otherwise specified we require that you have a dump truck driver, as surgery can be stressful and tiring. If you are being transported from a prison or other similar facility, we request that someone stay with you during this appointment. We are located in the [facility] [place], [place]. Please refer to the [facility] website for detailed driving directions ([email or web address]). When you arrive, please park in the upper parking lot. When you enter the building, go to the third floor, the receptionist scheduler area is located on the left (follow signs for Dermatology). What to expect after surgery: ??? Pain: Most people are concerned about pain. You will experience remarkably little discomfort after your surgery. Due to the potential to cause bleeding, we request that you do not take Aspirin or NSAIDS (ie. Ibuprofen, Aleve) for pain control. You may use acetaminophen (Tylenol). ??? Bleeding: A small number of patients will experience some bleeding post operatively. This bleeding can usually be controlled by pressure. If the bleeding persists after 15 minutes of continuous pressure, repeat for another 15 minutes. If this fails, contact our office at [phone] (after 5PM please call [phone] and ask for the Compressed Gases Tester recreation supervisor). Avoid bending over, heavy lifting (no greater than 10 pounds), straining, and do not drink alcohol for 2 days post operatively as this may stimulate bleeding. ??? Potential Complications: There are some complications that may occur after Mohs Surgery. A smallred area may develop surrounding your wound - this is normal and does not necessarily indicate infection. However, if the redness widens over a 2-3 day period, the wound begins to have drainage, or you experience fever or chills, notify our office immediately. Swelling and bruising are very common following Mohs surgery, particularly when it is performed around the eyes. It is common for one or both eyes to swell shut 1-3 days post operatively. At times, the area surrounding the operative site will be numb to touch. This area of numbness may persist for several months or longer, and in instances may be permanent. On rare occasions, there can be damage to the motor nerves which can result in permanent paralysis of affected muscles. Although every effort will be made to offer the best possible cosmetic results, scar formation is part of the healing process, and you will have a permanent scar. The scar can be minimized by the proper care of your wound. We will discuss wound care with you in detailat the time of your appointment. Please feel free to call the office if you have any questions about the procedure or the medicationsyou are taking. Our office phone number is [phone]. documented in this encounter Progress Notes Salo Howard MD - 10/06/2014 2:03 PM EDT MOHS SURGICAL CONSULT Chief Complaint: BCC History of Present Illness: Referring Physician: Dr. Iniguez Tumor type: BCC, transected Location of Skin Cancer: left ala Duration of Presence: 4 months Previous Treatment: no Symptoms: [x] Pain [] Bleeding [x] Crusting [] Other [] None Previous History of Skin Cancer: [x] None [] List: Family History of Skin Cancer [x] None [] Melanoma [] Basal cell [] Squamous cell [] Other: Review of Systems: Check all that apply regarding other health problems Skin Hematological Eyes/Ears/Nose/Throat [x] Normal [x] Normal [x] Normal [] Thick scars/keloids [] Anemia [] Glaucoma [] Poor wound healing [] Bleeding problems [] Hearing aid [] Herpes infection/cold sores [] Enlarged lymph nodes [] Cosmetic surgery [] Other [] Other [] Other Cardiovascular Respiratory GI/Renal [x] Normal [x] Normal [x] Normal [] Angina (chest pain) [] Emphysema [] Colitis [] Heart attack (Date ) [] COPD [] Stomach ulcer [] Artificial heart valve [] Asthma [] Kidney disease [] Pacemaker/defib [] Other [] Other [] HTN [] Other Musculoskeletal Endocrine Infections [x] Normal [x] Normal [x] None [] Arthritis [] Thyroid disease [] HIV/AIDS [] Artificial joint (Year ) [] Diabetes [] Hepatitis (type ) [] Other [] Other [] Tuberculosis [] Other Neurological Psychiatric [x] Normal [] Normal [] Stroke [] Anxiety [] Seizures [x] Depression h/o [] Mental status change [] Other [] Other Do you take antibiotics prior to having a dental or any other procedure No Medical Problems (not listed above): Patient Active Problem List Diagnosis Code ??? Basal cell carcinoma of left ala nasi 173.31 Surgical history (not listed above): Past Surgical History Procedure Laterality Date ??? Genital surg proc, female unlisted ??? Unlisted evaluation service Physical Limitations: None Do You Take [] aspirin [] Plavix [] Coumadin [] Other blood thinners/anti- platelet medications [x] None List Other Medications (prescription and over the counter including vitamins): Current Outpatient Prescriptions Medication Sig Dispense Refill ??? terbinafine HCl (LAMISIL) 250 mg Tablet Take 250 mg by mouth daily. ??? ibuprofen (ADVIL;MOTRIN) 600 mg tablet 600mg, PO, Four times daily No current facility-administered medications for this visit. Medication Allergies: Allergies Allergen Reactions ??? 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 No Are you nursing? No Physical Exam Blood pressure 144/82, pulse 83, resp. rate 20, height 174 cm (5' 8.5), weight 86.183 kg (190 lb). General: Pleasant, well-appearing, in no acute distress. Skin:Limited examination of face reveals 0.8 x 0.5 erythematous papule located on the left ala. Assessment and Plan 1. Basal Cell Carcinoma - left ala Reviewed treament options including wide local excision, Mohs micrographic surgery, electrodesiccation and curettage, and radiation therapy. Reviewed reconstruction options including second intention healing, linear repair, local flap, full thickness graft, and repair by Plastic Surgery or any other physician of the patient's choosing. The patient has elected to proceed with Mohs surgery. The patient has elected to have the post-Mohs defect repaired by plastics. I, Flor Romero LPN , am documenting this encounter acting as a scribe for and in the presence of Dr. Howard. I performed the above scribed services and agree with the accuracy of the documentation in this encounter. Salo Howard MD documented in this encounter Plan of Treatment Not on filedocumented as of this encounter Visit Diagnoses Diagnosis BCC (basal cell carcinoma of skin) Basal cell carcinoma of skin, site unspe cified documented in this encounter Care Teams Supervisor Wrapping Room Relationship Specialty Start Date End Date Terry Dailey MD PCP - General 08/21/[address] [place] [address] documented as of this encounter
--- OUTSIDE RECORDS SUMMARY | 2021-12-27 00:21 | XMS_ITS | Encounter Summary ---
:1965 Author Organization [facility] Address [address] [place] [address] Care Team Providers Name Role Phone Unknown, Provider Primary Care Provider Encounter Details Date Type Department Care Team Description 08/27/2021 Lab Requisition [facility] Outr Resulting Lab, Pathology & Laboratory Provider [facility] [address], [place] [id number] Social History Tobacco Use Types Packs/Day Years Used Date Never Assessed Sex Assigned at Date Recorded Not on file documented as of this encounter Plan of Treatment Not on filedocumented as of this encounter Procedures Procedure Name Priority Date/Time Associated Diagnosis Comme nts COVID-19 TEST [facility] Today 08/26/2021 14:45 LAB PCR EDT COVID-19 TESTING Routine 08/26/2021 14:45 Results for this EDT procedure are i n the results section. documented in this encounter Results COVID-19 TEST [facility] LAB PCR (08/26/2021 14:45 EDT) Specimen Swab Performing Organization Address City/State/ZIP Code Phon e Number [facility] [address] [place] [address] SERVICES COVID-19 TESTING (08/26/2021 14:45 EDT) COVID-19 rt-PCR Negative Negative [facility] Result Comment: [facility] This test [...] tions, patient history, and epidemiological informatio n. Testing was performed using the shaq SARS-CoV-2 assay ([employer] on the Shaq 6800 System Performing Lab Shaq 6800 [facility] Lab [facility] SERVICES Specimen Swab Performing Organization Address City/State/ZIP Code Phon e Number [facility] [address] [place] [address] SERVICES documented in this encounter Visit Diagnoses Not on filedocumented in this encounter Care Teams Healthcare Administrator Relationship Specialty Start Date End Date Unknown, Provider, PCP - General 08/16/14 documented as of this encounter
--- OUTSIDE RECORDS SUMMARY | 2021-12-27 00:21 | XMS_ITS | Encounter Summary ---
:1965 Author Organization [facility] [place] [address] Care Team Providers Name Role Phone Terry Dailey MD Primary Care Provider [phone] Encounter Details Date Type Department Care Team Description 09/22/2014 Hospital Encounter [place] [address] [facility] [address]-DERMATOLOGY [place], [place] [address] (Wo rk) Social History Tobacco Use Types Packs/Day Years Used Date Current Every Day Smoker Cigarettes 1 30 Smokeless Tobacco: Never Used Alcohol Use Standard Drinks/Week Comments Yes 0 (1 standard drink = 0.6 oz pure alcoho l) Sex Assigned at Date Recorded Not on file documented as of this encounter Medications at Time of Discharge [...] times daily documented as of this encounter Plan of Treatment Not on filedocumented as of this encounter Procedures Procedure Name Priority Date/Time Associated Diagnosis Comme nts SURGICAL PATHOLOGY Routine 09/22/2014 9:31 AM Res ults for this REPORT EDT procedure are i n the results section. documented in this encounter Results Surgical Pathology Report (09/22/2014 9:31 AM EDT) Component Value Ref Test Analysis Performed At [facility] gist Range Method Time Signature Surgical CERNER Pathology ? [facility] Report ? Provider: ?? SALO HOWARD ?? Pt. Name: ?? ALETA BRADFORD, FELICITA Jose ? Acc #: ?[id number] ? Pt. ? Col Date: ?? 5 ? /Sex: ?1965,(49 years),Female ? Rec Date: ?? 09/23/2014 ? LOC: ?[facility] ? SURGICAL PATHOLOGY ? ---Pathologic Diagnosis--- ? CONSULTATION CASE ? Outside slides labeled, [id number], collection halley e 08/12/2014. ? Skin, nose, left ala, biopsy: ?Basal cell carcinoma, transected. ? Dictated by: ??Yogesh Alvarenga, DO ? Dermatopathology Fellow ? As the attending phys ryan, I attest that I examined the histologic slides, ? and confirm Dr. Yogesh Alvarenga's diagnosis. ? 09/23/14 ? GLL ? 09/23/14 Verified by: ? Nya Rubio MD ? Dermatopatholo gist ? (Electronic Si gnature) ? The attending pathologist whose signature appears o n this report has ? reviewed all diagnostic slides and has edited the rodrick ss and/or ? microscopic portion of the report in rendering the fi nal pathologic ? diagnosis. ? ---Gross Description--- ? [facility] ([facility]) pathology slide(s) are ? reviewed. ??Refer to Diagnosis an d Specimen Submitted for specific case ? information. ? For the full text of the [facility] report(s) please refer to Non-DH ? Documentation Pathology in the electronic health [address] (eDH). ? ---Clinical Information--- ? Specimen Submitted: ? CONSULTATION CASE ? A - 2 slides labeled [id number] collection date 015. ? [id number] ? Report to: ? [facility] ? Surgical Pathology Department ? [facility], [facility], 2nd Floor ? [address] ? [facility] ? Provider: ?? SALO HOWARD ?? Pt. Name: ?? ALETA BRADFORD, FELICITA Garcia ? Acc #: ?[id number] ? Pt. ? Col Date: ?? 5 ? /Sex: ?1965,(49 years),Female ? Rec Date: ?? 09/23/2014 ? LOC: ?[facility] ? SURGICAL PATHOLOGY ? [place], [place] ??[address] ? Specimen (Source) Anatomical Collection Method Collection Time Re ceived Time Location / / Volume Laterality 09/22/2014 9:31 AM EDT Salo Howard MD PATHOLOGY/CYTOLOGY ORDERABLE S Performing Organization Address City/State/[place] [address] [facility] documented in this encounter Visit Diagnoses Not on filedocumented in this encounter Care Teams Rn Interventional Relationship Specialty Start Date End Date Terry Dailey MD PCP - General 08/21/[address] [place] [address] documented as of this encounter
--- OUTSIDE RECORDS SUMMARY | 2021-12-27 00:21 | XMS_ITS | Encounter Summary ---
:1965 Author Organization [facility] [place] [address] Care Team Providers Name Role Phone Terry Dailey MD Primary Care Provider [phone] Encounter Details Date Type Department Care Team Description 09/23/2014 External Results Medical Records Provider, [place] [address] Social History Tobacco Use Types Packs/Day Years [...] Diagnosis Comme nts SURGICAL PATHOLOGY Routine 09/22/2014 Results f or this SCAN procedure are i n the results section . documented in this encounter Results Scan Doc: Surgical Pathology (09/22/2014) Narrative This result has an attachment that is no t available. Salo Howard MD MEDIA MGR SCAN EXT ORDR/RSLT documented in this encounter Visit Diagnoses Not on filedocumented in this encounter Care Teams Direct Marketing Coordinator Relationship Specialty Start Date End Date Terry Dailey MD PCP - General 08/21/[address] [place] [address] documented as of this encounter
--- OUTSIDE RECORDS SUMMARY | 2021-12-27 00:21 | XMS_ITS | Encounter Summary ---
:1965 Author Organization [facility] Address [address] [place] [address] Care Team Providers Name Role Phone Unavailable Primary Care Provider Unavailable Encounter Details Date Type Department Care Team Description 08/12/2014 Results Only [facility]to Martin, [address] [place], [place] [id number] (Wo rk) Social History Tobacco Use Types Packs/Day Years Used Date Never Assessed Sex Assigned at Date Recorded Not on file documented as of this encounter Plan of Treatment Not on filedocumented as of this encounter Procedures Procedure Name Priority Date/Time Associated Diagnosis Comme [facility] SURGICAL PATHOLOGY Routine 08/12/2014 9:15 EST Re sults for this procedure are i n the results section. documented in this encounter Results SURGICAL PATHOLOGY (08/12/2014 9:15 EST) Pathology Report: SURGICAL PATHOLOGY REPORT [facility] Reports generated via electronic interface contain carlita ginal data; LABORATORY however they are lacking the format of the original re port. SERVICES Caution should be taken when reading/interpreting unfo rmatted reports. Name: ? FELICITA COLLAZO ? Accession #: ? [id number] ? : ? 1965 (Age: 49) ??F ? Collect Date: ? 08/12/2014 ? Location: ? [facility] ? Receive Date: ? 015 ? Provider: RIGOBERTO ACUÑA MD Copy to: KATRIN SEXTON MD ? Final Pathologic Diagnosis: SKIN OF NOSE, LEFT ALA, BIOIPSY: - Basal cell carcinoma, nodular type. - Basal cell carcinoma present at peripheral edges and base of shave biopsy specimen. Microscopic Description: Irregularly shaped islands o f atypical basal cells infiltrate the dermis. ??The basal cells have scant cytoplasm and round dark nuclei. ??Mitotic figures and apoptotic bodies are evident . ??The nuclei at the periphery of the islands have a palisaded arrangement. ??The islands are associated with a fibromyxoid stroma and there is cleft formation bet ween some of the islands and stroma. ??(Dr. Mejia)/[facility] Document reviewed and electronically signed by: DAVID MEJIA MD Report ??Date: 08/14/2014 16:06 By the signature above, the attending physician certif ies that he/she has personally conducted a gross and/or microscopic examin ation of the described specimens and rendered or confirmed the above diagnosi s. Specimen(s) Received: Skin lesion nose left ala Clinical History: Skin lesion nose left ala Gross Description: ? Received in formalin labelled with proper patient identification (initials H, T) and skin lesion nose left ala is a shave biopsy of brasher-padron skin (0.6 x 0.4 x 0.1 cm). ??Also receiv ed in the same container are two brasher-brown coarsely granular friable tissue frag ments (each 0.4 x 0.3 x 0.1 cm). ??The skin shave is trisected and entirely submitted in 1 and the remainin g tissue fragments are submitted intact in 2. ?? Merritt Zimmer 08/13/2014 2:20 PM End of Report Specimen Performing Organization Address City/State/ZIP Code Phon e Number [facility] [address] [place], [place] [id number] SERVICES documented in this encounter Visit Diagnoses Not on filedocumented in this encounter
--- OUTSIDE RECORDS SUMMARY | 2021-12-27 00:21 | XMS_ITS | Encounter Summary ---
:1965 Author Organization [facility] Address [address] [place] [address] Care Team Providers Name Role Phone Unavailable Primary Care Provider Unavailable Encounter Details Date Type Department Care Team Description 03/30/2003 Results Only [facility] - Onesimo Abreu MD conversion [address] [place] [id number] Social History Tobacco Use Types Packs/Day Years Used Date Never Assessed Sex Assigned at Date Recorded Not on file documented as of this encounter Plan of Treatment Not on filedocumented as of this encounter Procedures Procedure Name Priority Date/Time Associated Diagnosis Comme nts SURGICAL PATHOLOGY Routine 03/30/2003 0:00 EDT Re sults for this procedure are i n the results section. documented in this encounter Results SURGICAL PATHOLOGY (03/30/2003 0:00 EDT) Pathology Report: SURGICAL PATHOLOGY REPORT [facility]AN Reports generated via electronic interface contain carlita ginal data; LAB however they are lacking the format of the original re port. Caution should be taken when reading/interpreting unfo rmatted reports. Name: ? FELICITA COLLAZO ? Accession #: ? [id number] ? : ? 1965 (Age: 38) ??F ? Collect Date: ? 03/30/2003 ? Location: ? [facility] ? Receive Date: ? 003 ? Provider: ONESIMO RODRIGUEZ MD Copy to: FERNANDO CAMACHO MD ? Final Pathologic Diagnosis: ? Cervix, biopsy: - High grade squamous intraepithelial lesion (ADRIANA II-I II). ??See comment. Comment: ? This case was reviewe d at intradepartmental consultation conference. ??(Dr. Botello)/[facility] Document reviewed and electronically signed by: Ladarius Novak MD Report ??Date: 04/01/2003 14:27 By the signature above, the attending physician certif ies that he/she has personally conducted a gross and/or microscopic examin ation of the described specimens and rendered or confirmed the above diagnosi s. Specimen(s) Received: ? Cx bx Clinical History: ? HGSIL on D&C specimen. ??Last Pap 1999 - Nl. Gross Description: ? Received in formalin labelled [place] and endocervix is a brasher-white, 0.4 x 0.3 x 0.3 cm, soft tis lamine fragment. ??The specimen is entirely submitted in one cassette. (Ramy Osborne)/nimesh End of Report Specimen Performing Organization Address City/State/ZIP Code Phon e Number [facility] [address] [place] [address] SERVICES [facility] [address] [place] [address] documented in this encounter Visit Diagnoses Not on filedocumented in this encounter
--- NOTE | 2021-12-27 07:00 | DI.MAMMO_ITS ---
Exam(s) MAMMO SCREENING EXAM: MAMMO SCREENING CLINICAL HISTORY: screening, Z12.39. TECHNIQUE: Bilateral full field digital CC and MLO mammographic images were obtained with 3D tomosyn thesis and utilizing computer aided detection (CAD). COMPARISON: Prior mammograms were reviewed, the most recent being 2014. FINDINGS: There has been no significant change in the appearance and distribution of the fibroglandular tissue. There are no CAD designations. There are no new spiculated masses nor malignant appearing microcalcification groups. There is no significant architectural distortion nor skin thickening-retraction. IMPRESSION: No radiographic evidence of malignancy. BI-RADS Category 1 - Negative Breast Density - Category B - Scattered areas of fibroglandular density Breast density Category C or D implies that the patient has dense breast tissue. Dense breast tissue can make it harder to find cancer on a mammogram. Dense breast tissue is also associated with an incr eased risk of breast cancer. This information about the result of the mammogram report was provided to the patient to raise their awareness. Use this report when you speak with the patient about their risks for breast cancer, which includes their family history. At that time, you may recommend additional screening tests (Ultrasoun d or MRI) as these tests may add significant information. A negative radiographic report should not delay biopsy if a dominant or clinically suspicious mass is present. Up to ten percent of cancers are not identified on mammography. A negative report may reinforce clinical impression. Adenosis and dense breasts may obscure an underlying neoplasm. False positive reports average 6 to 10%. Patient will receive a letter notifying them of these results.
== END ==
PROVIDERS: PCP Family Medicine; Visit Provider Family Medicine
DX: Z12.31 Encounter for screening mammogram for malignant neoplasm of breast (principal)
CPT/HCPCS: 77063; 77067

== ENCOUNTER 2022-02-21 09:08 | Day surgery (SDC) | payer SELFPAY ==
--- NOTE | 2022-02-20 22:06 | PDOC.DSDIS_ITS ---
Discharge Plan Disposition Patient Disposition: HOME Condition: Good Discharge Details Reason For Visit: colon scope Attending Provider: Renee Klein Primary Care Provider: Lesley Dodge Home Meds and New Rx's Prescriptions: Continued acetaminophen 500 mg capsule 2,000 mg PO BID PRN aspirin [Adult Low Dose Aspirin] 81 mg tablet,delayed release (DR/EC) 81 mg PO DAILY albuterol sulfate [ProAir HFA] 90 mcg/actuation HFA aerosol inhaler 2 puff inhalation Q6H PRN (Reason: shortness of breath or wheezing) Qty: 8.5 3RF metformin 1,000 mg tablet 1,000 mg PO BID Qty: 60 12RF atorvastatin 40 mg tablet 40 mg PO QHS Qty: 90 3RF glimepiride 2 mg tablet 1 mg PO DAILY Qty: 90 1RF Discontinued polyethylene glycol 3350 17 gram/dose powder 17 g PO ONCE Qty: 238 0RF bisacodyl [Dulcolax (bisacodyl)] 5 mg tablet,delayed release (DR/EC) 5 mg PO ONCE Qty: 4 0RF Discharge Instructions Additional Instructions: DSU Colonoscopy Post- Op Instructions Instructions for Everyone who is given Anesthesia: For your safety, please do the following for the next twenty-four (24) hours: *Do Not operate a motor vehicle (car, truck, motorcycle, etc.) *Do Not drink alcoholic beverages or use any recreational drugs for the first 24 hours or while taking pain medications. The medications in your body may have a reaction that can be dangerous. *Do Not make any important decisions or sign any important papers. Findings: Follow up: 1. No lifting over 20 pounds or strenuous activity for the first 24 hours after your procedure. After 24 hours there are no restrictions on your activity but you may feel fatigued for a few days. 2. After you arrive home you may have a light meal and return to your normal diet as you can tolerate it without feeling sick to your stomach. 3. You may have a bloated, gaseous feeling in your belly (abdomen) after a colonoscopy. Passing gas and belching will help. Walking or lying down on your left side with your knees flexed may relieve the discomfort. Call the office at [phone] (Office) or [phone] (Hospital) right away if you notice any of the following: a.Vomiting of blood or ?coffee ground stools?. b.Rectal bleeding 1Tbsp, blood clots or continuous bleeding. c.Severe belly (abdominal) pain. d.A hard distended belly (abdomen) and an inability to pass gas. 4. Please don?t expect to have a normal BM (bowel movement) for 2-3 days after your procedure. 5. If there are questions regarding the findings of your procedure, please contact your doctor 6. If you are unable to contact your doctor with a problem, contact the hospital at [phone]. 7. Continue all your regular medications unless directed otherwise. I understand the above instructions and have no questions. Signature of Patient or Adult Escort Name of Responsible Adult Escort Signature of Nurse Date/Time Activity:: see above Diet:: see above Discharge Orders Discharge Orders: Discharge Order (Routine); Ordered 02/20/22 Ordered By: Renee Klein
--- NOTE | 2022-02-21 08:39 | ANES.PREOP_ITS ---
General Info Date of Service Date Performed: 02/21/22 Height: 5 ft 8 in Weight: 75.75 kg Body Mass Index (BMI): 25.4 Surgical Procedure: Operation Date: 02/21/22 10:05 Proposed Procedure Side Surgeon perla Klein, DO Meds Allergies and Home Medications Allergies Allergy/AdvReac Type Severity Reaction Status Date / Time Tetracyclines AdvReac Mild Nausea Verified 02/21/22 09:32 Home Medication Medication Instructions Recorded acetaminophen 500 mg capsule 2,000 mg PO BID PRN 06/24/19 metformin 1,000 mg tablet 1,000 mg PO BID #60 tabs 08/26/21 atorvastatin 40 mg tablet 40 mg PO QHS #90 tabs 09/30/21 albuterol sulfate 90 mcg/actuation 2 puff inhalation Q6H PRN 11/18/21 aerosol inhaler (ProAir HFA) shortness of breath or wheezing #8.5 grams aspirin 81 mg tablet,delayed 81 mg PO DAILY 11/18/21 release (Adult Low Dose Aspirin) glimepiride 2 mg tablet 2 mg PO DAILY 02/21/22 Current Visit Medications: Current Medications Generic Name Dose Route Start Last Admin Trade Name Freq PRN Reason Stop Dose Admin Hyoscyamine Sulfate 0.125 mg 02/20/22 22:05 Hyoscyamine 0.125 Mg Sl/Oral/Chew SL DIRECTED PRN Ringer's Solution 1,000 mls @ 80 mls/hr 02/21/22 06:00 IV 03/22/22 23:59 INFUSION [facility] IV Miscellaneous Supplies 1 each 02/21/22 06:00 Iv Access IV 03/22/22 23:59 DIRECTED IRVING Ondansetron HCl 4 mg 02/20/22 22:05 Ondansetron 4 Mg/2 Ml Vial IVP Q4H PRN PRN Nausea / Vomiting Sodium Chloride 0 ml 02/21/22 06:00 Normal Saline Flush 10 Ml Syr IV 03/22/22 23:59 PRN PRN Sodium Chloride 0 ml 02/21/22 06:00 Normal Saline 10 Ml Vial IJ 03/22/22 23:59 DIRECTED PRN Sterile Water 0 ml 02/21/22 06:00 Water,Injection,Sterile 10 Ml Vial IJ 03/22/22 23:59 DIRECTED PRN PFSH Active Problems Active Problems: Problem Status Onset Code Atherosclerosis of aorta I70.0 Coronary artery calcification seen on CAT scan I25.10 Emphysema/COPD ~10/2021 J43.9 Hyperlipidemia due to type 2 diabetes mellitus E11.69, E78.5 Type 2 diabetes mellitus E11.9 Cervical myofascial pain syndrome M79.18 Tobacco use disorder F17.200 Osteoarthritis M19.90 Lumbago M54.5 Dental caries K02.9 Basal cell carcinoma of left side of nose 08/12/14 C44.311 Medical History Medical History Ectopic Finger pain, left Fracture of fifth metacarpal bone of right hand Lumbago Osteoarthritis Surgical History Surgical History Excision, Lipoma (08/12/14) LEFT SIDE OF NOSE History of hysterectomy History of unilateral oophorectomy HYSTERECTOMY KNEE REPAIR LEFT Oophrectomy, Right Tobacco Smoking/Tobacco Use Status: Current every day Tobacco Type: cigarettes Passive smoking exposure: Yes Second hand exposure: Yes Counseling given: provider counseling Alcohol Alcohol Intake: current Alcohol intake frequency: a few times a month Alcohol type: other Substance Use Substance use: Never Substance use type: does not use Vital Signs and Lab Results Vital Signs Most Recent Vital Signs in EMR: Temp Pulse Resp BP Pulse Ox 36.7 C 81 17 121/85 97 02/21/22 09:33 02/21/22 09:33 02/21/22 09:33 02/21/22 09:33 02/21/22 09:33 Lab Results Blood Type / Crossmatch: No Data to Display Complete Blood Count: No Data to Display Complete Metabolic Panel: No Data to Display Liver Function Panel: No Data to Display Coagulation Panel: No Data to Display Cardiac Panel: No Data to Display Arterial Blood Gas: No Data to Display Venous Blood Gas: No Data to Display Pancreas Panel: No Data to Display Thyroid Panel: No Data to Display Infectious Disease: No Data to Display Blood Cultures: No Data to Display Toxicology Panel: No Data to Display Imaging and Studies Imaging and Studies Study information below may be from another EMR and interpreted by another provider. Please see original notes in EMR for more complete details. Pulmonary Function Summary: Date of service: 11/01/21 Time of Service: 08:03 Pulmonary Function Test Result Requesting Provider Lesley Dodge Indications: Dyspnea Interpretation Spirometry: There is moderate to severe airflow limitation. There is a significant bronchodilator response. The decreased FVC is likely due to severe obstruction. Lung Volumes: There is evidence of air trapping. Diffusion Capacity: The diffusion is reduced. Airway Pressure: There is increased airways resistance. Impression Moderate to severe airflow obstruction with a significant bronchodilator response and a reduced diffusion. In the correct clinical context, this could represent COPD with emphysema. Clinical Correlation therefore is recommended. Anesthesia Assessment and Plan Anesthesia History Personal History: No History of Anesthesia Complications Family History: No Family History of Anesthesia Complications Exercise Tolerance Exercise Tolerance: Metabolic Equivalents>4 Pertinent Negatives Pertinent Negatives: No Symptoms of GERD and No Major Cardiovascular Symptoms or Complaints Cardiac & Pulmonary Exam Cardiac Exam: Normal S1/S2 Heart Sounds Pulmonary Exam: Wheezing Present (2 puffs albuterol administered, good response, clear bilateral breath sounds following) Implantable Cardiac Device Does patient have a Pacemaker or an ICD?: No Airway Exam Known Difficult Airway: No Mallampati Class: 2 Mouth Opening: Normal (> 3cm) Thyromental Distance: Greater than 3 cm Neck Range of Motion: Full ROM Neck Circumference: Normal Teeth Condition: Normal Dentition ASA Classification ASA Score: ASA 3 Emergency Case?: No NPO Status NPO Status: NPO Clears >2 hours, Solids >8 hours Anesthesia Plan Resuscitation Status: Full Code Anesthesia Technique: General Anesthesia Airway Planned: Natural Airway Monitors Used: Standard Monitors
[2022-02-21 09:33] VITALS: BP 121/85; PULSE 81; RESP 17; TEMP 36.7; O2SAT 97
[2022-02-21] MEDS: Lactated Ringers 1,000 ML 80 ML IV (10:05)
[2022-02-21 10:12] VITALS: BMI 25.4
--- NOTE | 2022-02-21 11:00 | BOWEL_PTH ---
PATIENT: Felicita Collazo LOC: [facility] U#:[id number] AGE/SX: 57/F ROOM: RE02/21/[address]: Renee Klein : 1965 BED: DIS: 02/21/2022 SPEC #: [id number] RECD: 02/21/22 12:57 STATUS: GISELLE REQ #: [id number] JESS: 02/21/22 11:[address]: Renee Klein DEPT: Surgical Specimen RECD BY: Dianna Land ENTERED: 02/21/22 12:58 SP TYPE: Bowel OTHR DR: Lesley Dodge Tissues: 1 - BIOPSY BOWEL 2 - BIOPSY BOWEL Procedures: GROSS AND MICRO LEVEL 4 Comments: [id number]
[2022-02-21 11:10] VITALS: BP 117/67; PULSE 63; RESP 18; TEMP 36.2; O2SAT 98
--- NOTE | 2022-02-21 11:11 | DSE_ITS ---
Discharge Plan Disposition Patient Disposition: HOME Condition: Good Discharge Details Reason For Visit: colon scope Attending Provider: Renee Klein Primary Care Provider: Lesley Dodge Home Meds and New Rx's Prescriptions: Continued acetaminophen 500 mg capsule 2,000 mg PO BID PRN aspirin [Adult Low Dose Aspirin] 81 mg tablet,delayed release (DR/EC) 81 mg PO DAILY albuterol sulfate [ProAir HFA] 90 mcg/actuation HFA aerosol inhaler 2 puff inhalation Q6H PRN (Reason: shortness of breath or wheezing) Qty: 8.5 3RF metformin 1,000 mg tablet 1,000 mg PO BID Qty: 60 12RF atorvastatin 40 mg tablet 40 mg PO QHS Qty: 90 3RF Discontinued polyethylene glycol 3350 17 gram/dose powder 17 g PO ONCE Qty: 238 0RF bisacodyl [Dulcolax (bisacodyl)] 5 mg tablet,delayed release (DR/EC) 5 mg PO ONCE Qty: 4 0RF No Action glimepiride 2 mg tablet 2 mg PO DAILY Discharge Instructions Additional Instructions: DSU Colonoscopy Post- Op Instructions Instructions for Everyone who is given Anes thesia: For your safety, please do the following for the next twenty-four (24) hours: *Do Not operate a motor vehicle (car, truck, motorcycle, etc.) *Do Not drink alcoholic beverages or use any recreational drugs for the first 24 hours or while taking pain medications. The medications in your body may have a reaction that can be dangerous. *Do Not make any important decisions or sign any important papers. Findings: diverticul large polyp Follow up: repeat in 3 ysr time No ASA/NSAIDS for 7 days 1. No lifting over 20 pounds or strenuous activity for the first 24 hours after your procedure. After 24 hours there are no restrictions on your activity but you may feel fatigued for a few days. 2. After you arrive home you may have a light meal and return to your normal diet as you can tolerate it without feeling sick to your stomach. 3. You may have a bloated, gaseous feeling in your belly (abdomen) after a colonoscopy. Passing gas and belching will help. Walking or lying down on your left side with your knees flexed may relieve the discomfort. Call the office at [phone] (Office) or [phone] (Hospital) right away if you notice any of the following: a.Vomiting of blood or ?coffee ground stools?. b.Rectal bleeding 1Tbsp, blood clots or continuous bleeding. c.Severe belly (abdominal) pain. d.A hard distended belly (abdomen) and an inability to pass gas. 4. Please don?t expect to have a normal BM (bowel movement) for 2-3 days after your procedure. 5. If there are questions regarding the findings of your procedure, please contact your doctor 6. If you are unable to contact your doctor with a problem, contact the hospital at [phone]. 7. Continue all your regular medications unless directed otherwise. I understand the above instructions and have no questions. Signature of Patient or Adult Escort Name of Responsible Adult Escort Signature of Nurse Date/Time Activity:: see above Diet:: see above Discharge Orders Discharge Orders: Discharge Order (Routine); Ordered 02/20/22 Ordered By: Renee Klein DS: Data Vitals/I&O Vitals and I&O: Vital Signs Temperature 36.7 C 02/21/22 09:33 Pulse 81 02/21/22 09:33 Pulse Rhythm Regular 02/21/22 09:33 Respiratory Rate 17 02/21/22 09:33 Respiratory Depth Normal 02/21/22 09:33 Blood Pressure 121/85 02/21/22 09:33 Pulse Oximetry 97 02/21/22 09:33 Oxygen Delivery Method Room Air 02/21/22 09:33 Oxygen Flow Rate 0 02/21/22 09:33 Pain Level 0 02/21/22 09:33 Intake & Output 02/20/22 02/20/22 02/21/22 11:59 23:59 11:59 Intake Total 250 / 250 Balance 250 / 250 Weight 75.75 kg 72.3 kg Intake: IV 250 / 250 PFSH All Active Problems Atherosclerosis of aorta (Acute) Coronary artery calcification seen on CAT scan (Acute) Emphysema/COPD (Chronic ~10/2021) PFTs 10/2021 Hyperlipidemia due to type 2 diabetes mellitus (Acute) Type 2 diabetes mellitus (Acute) Cervical myofascial pain syndrome (Acute) Tobacco use disorder (Chronic) Osteoarthritis (Chronic) Lumbago (Chronic) Dental caries (Chronic) Medical History Ectopic Finger pain, left Fracture of fifth metacarpal bone of right hand Lumbago Osteoarthritis Surgical History Excision, Lipoma (08/12/14) LEFT SIDE OF NOSE History of hysterectomy History of unilateral oophorectomy HYSTERECTOMY KNEE REPAIR LEFT Oophrectomy, Right Family History (Updated 11/21/21 @ 08:42 by Fallon Hawkins) Mother , 70 Stroke Father , 29 electrocuted No problems noted. Brother , 53 No problems noted. Son No problems noted. Son No problems noted. Daughter No problems noted. Daughter No problems noted. Social History (Updated 11/21/21 @ 08:39 by Fallon Hawkins) Smoking/Tobacco Use Status: Current every day Tobacco Type: cigarettes Tobacco: How many years used: 40 Quit status: not considering quitting Second Hand Exposure: Yes Counseling given: provider counseling Smoking risk assessment performed?: Yes Alcohol Intake: current Alcohol Intake frequency: a few times a month Alcohol type: other Drug use: Never Substance use type: does not use Caregiver/Support person: No Household members: significant other Housing: house Number of Children: 4 Communication Needs: Corrective Lenses Do you need help understanding health information?: Rarely 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 - [employer] Pets and animals: Yes Pets and animals: cat(s) and horse(s) Sexually active: Yes Do you think of yourself as: straight/heterosexual Current gender identity: female What is your relationship status?: living with partner How often do you talk on the phone with friends or family?: three or more times per week How often do you get together with friends or relatives?: once per week How often do you attend yarsani or hoahaoism services?: decline to answer Do you belong to any clubs or organized social groups?: yes Panel score (0-1 are the most socially isolated patients): 3 What type of physical activity do you participate in: none Simona/Sabianism: No preference Special simona needs: No Additional Social history: unable to assess privately
--- NOTE | 2022-02-21 11:15 | W.PM.DSUDISC ---
Discharge Plan Disposition Patient Disposition: HOME Condition: Good Discharge Details Reason For Visit: colon scope Attending Provider: Renee Klein Primary Care Provider: Lesley Dodge Home Meds and New Rx's Prescriptions: Continued acetaminophen 500 mg capsule 2,000 mg PO BID PRN aspirin [Adult Low Dose Aspirin] 81 mg tablet,delayed release (DR/EC) 81 mg PO DAILY albuterol sulfate [ProAir HFA] 90 mcg/actuation HFA aerosol inhaler 2 puff inhalation Q6H PRN (Reason: shortness of breath or wheezing) Qty: 8.5 3RF metformin 1,000 mg tablet 1,000 mg PO BID Qty: 60 12RF atorvastatin 40 mg tablet 40 mg PO QHS Qty: 90 3RF Discontinued polyethylene glycol 3350 17 gram/dose powder 17 g PO ONCE Qty: 238 0RF bisacodyl [Dulcolax (bisacodyl)] 5 mg tablet,delayed release (DR/EC) 5 mg PO ONCE Qty: 4 0RF No Action glimepiride 2 mg tablet 2 mg PO DAILY Discharge Instructions Additional Instructions: DSU Colonoscopy Post-Op Instructions Instructions for Everyone who is given Anesthesia: For your safety, please do the following for the next twenty-four (24) hours: *Do Not operate a motor vehicle (car, truck, motorcycle, etc.) *Do Not drink alcoholic beverages or use any recreational drugs for the first 24 hours or while taking pain medications. The medications in your body may have a reaction that can be dangerous. *Do Not make any important decisions or sign any important papers. Findings: diverticul large polyp Follow up: repeat in 3 ysr time No ASA/NSAIDS for 7 days 1. No lifting over 20 pounds or strenuous activity for the first 24 hours after your procedure. After 24 hours there are no restrictions on your activity but you may feel fatigued for a few days. 2. After you arrive home you may have a light meal and return to your normal diet as you can tolerate it without feeling sick to your stomach. 3. You may have a bloated, gaseous feeling in your belly (abdomen) after a colonoscopy. Passing gas and belching will help. Walking or lying down on your left side with your knees flexed may relieve the discomfort. Call the office at [phone] (Office) or [phone] ([facility]) right away if you notice any of the following: a.Vomiting of blood or ?coffee ground stools?. b.Rectal bleeding 1Tbsp, blood clots or continuous bleeding. c.Severe belly (abdominal) pain. d.A hard distended belly (abdomen) and an inability to pass gas. 4. Please don?t expect to have a normal BM (bowel movement) for 2-3 days after your procedure. 5. If there are questions regarding the findings of your procedure, please contact your doctor 6. If you are unable to contact your doctor with a problem, contact the hospital at [phone]. 7. Continue all your regular medications unless directed otherwise. I understand the above instructions and have no questions. Signature of Patient or Adult Escort Name of Responsible Adult Escort Signature of Nurse Date/Time Activity:: see above Diet:: see above Discharge Orders Discharge Orders: Discharge Order (Routine); Ordered 02/20/22 Ordered By: Renee Klein
[2022-02-21 11:40] VITALS: BP 119/68; PULSE 69; RESP 18; TEMP 36.4; O2SAT 99
--- NOTE | 2022-02-21 12:13 | ANES.POST_ITS ---
Postoperative Evaluation Date, Time and Location Date Performed: 02/21/22 Time Performed: 12:13 Patient Location: Day Surgery Unit Vital Signs Most Recent Imported Vital Signs: Most Recent Vital Signs Temp Pulse Resp BP Pulse Ox 36.2 C L 63 18 117/67 98 02/21/22 11:10 02/21/22 11:10 02/21/22 11:10 02/21/22 11:10 02/21/22 11:10 Pain Score Most Recent Pain Score: Most Recent Pain Score Pain Level 0 02/21/22 11:10 Assessment Mental Status: Awake (Alert & Oriented to Patient Baseline) Airway and Respiratory Function: Patent airway with normal (patient baseline) respiratory exam Cardiovascular Function: Hemodynamically Stable Hydration Status: Adequately Hydrated Nausea & Vomiting: No Nausea or Vomiting Pain: Pt. Denies Any Pain Peripheral Nerve Block: Patient did not receive a nerve block Teaching Patient Teaching: Advised to seek followup for the following concerns (See e xplanation) Concerns: Pulmonary Optimization
--- NOTE | 2022-02-21 23:32 | COLE_ITS ---
Colonoscopy Report Date of procedure: 02/21/22 Pre-op diagnosis general: Colon cancer screening Post-op diagnosis procedure note: other (Polyps and diverticula) Surgeon: Renee Klein Anesthesia Type: General:No Airway Estimated blood loss (mL): 1 Pathology: other Complications: None Disposition: same day Prep: Miralax/Dulcolax Retraction Time: 12 Procedure Description: After informed consent was obtained the patient was taken to the procedure room and placed in a left decubitous position. Monitors were applied and a time out was done. The patients name, date of , procedure, allergies to medications and metal in their body was reviewed. The patient was then sedated. Once sedated and comfortable a rectal exam was done. External exam was normal. Internal exam revealed a normal sphincter tone and no palpable masses. The scope was then introduced and retrofelexed. no internal hemorrhoids were identified. The scope was then advanced to the cecum without difficulty. The TI and appendiceal orifice were identified. The prep was BB PS 2 in all segm ents for a total of 6. The scope was then slowly retracted over 12 minutes back into the rectum. Polyps were removed at she had x2 5 flat millimeters polyps at 40 cm. These are both removed with a cold forcep. All specimen is retrieved and no bleeding is noted. In the rectum she had a 1 cm pedunculated rectal polyp. This was removed with cold snare. All specimen is retrieved and no bleeding is noted. She also has mild diverticular disease that do extend all the way over to the right side. Without any signs of active bleeding or infection``. The scope was removed and the patient was woken up and taken back to Same day surgery in stable condition. The patient tolerated the procedure well and there were no immediate complications. Follow up: The patient should follow up in 3-5 years unless they develop changes in bowel habits or other new gastrointestinal complaints.
== END 2022-02-21 12:20 | disposition home or self-care (01) ==
LOC: SUR 09:09
PROVIDERS: PCP Family Medicine; Visit Provider Surgery
PROC: 0DJD8ZZ Inspection of Lower Intestinal Tract, Via Natural or Artificial Opening Endoscopic (ICD-10-PCS; CPT 45378; principal; 2022-02-21 10:00)
DX: Z12.11 Encounter for screening for malignant neoplasm of colon (principal); K63.5 Polyp of colon; K57.30 Diverticulosis of large intestine without perforation or abscess without bleeding; K62.1 Rectal polyp; E11.9 Type 2 diabetes mellitus without complications; Z79.84 Long term (current) use of oral hypoglycemic drugs
CPT/HCPCS: 45385; 45380; 88305

== ENCOUNTER 2022-12-21 16:38 | Outpatient (CLI) | payer SELFPAY ==
--- NOTE | 2022-12-21 16:15 | DI.RAD_ITS ---
Exam(s) XR THUMB RT EXAM: XR THUMB RT CLINICAL HISTORY: Rt thumb pain, M79.646, evaluate pathology. TECHNIQUE: 2D digital imaging was performed. COMPARISON: No exams were available for comparison FINDINGS: 3 views No evidence of fracture or dislocation. No osseous lesions nor erosions. No radiopaque foreign body . Bone density normal. First carpometacarpal joint as well as the other articulations of the thumb appear unremarkable. IMPRESSION: No significant osseous findings in thumb. DATA REPOSITORY: RADIATION DOSE DELIVERED:
== END 2022-12-21 16:58 ==
PROVIDERS: PCP Family Medicine; Visit Provider Nurse Practitioner Family
DX: M79.644 Pain in right finger(s) (principal)
CPT/HCPCS: 73140

== ENCOUNTER 2022-12-26 02:42 | Outpatient (CLI) | payer SELFPAY ==
[2022-12-26 12:09] LABS: ESR 10 mm/hr (0-30)
[2022-12-26 12:26] LABS: ALT 65 U/L (14-59); AST 30 U/L (15-37); Alkaline Phosphatase 121 U/L (46-116); Anion Gap 10.3 mmol/L (3-11); BUN 14 mg/dL (7-18); Bilirubin, Total 0.7 mg/dL (0.2-1.0); CO2 26.7 mmol/L (21.0-32.0); CREATININE 0.8 mg/dL (0.55-1.02); Calcium 8.8 mg/dL (8.5-10.1); Calculated LDL 64 mg/dL (<100); Chloride 102 mmol/L (98-107); Cholesterol 132 mg/dL (<200); Estimated GFR 85.89 (mL/min/1.73m2); Glucose 263 mg/dL (74-106); HDL Cholesterol 50 mg/dL (40-60); Sodium 139 mmol/L (136-145); Total Protein 7.5 g/dL (6.4-8.2); Triglyceride 92 mg/dL (<150)
[2022-12-26 12:36] LABS: Hemoglobin A1C 8.8 % (<5.7)
[2022-12-26 16:43] LABS: Lab Add On Test DONE
[2022-12-26 17:32] LABS: Vitamin B12 428 pg/mL (193-986)
== END 2022-12-26 02:43 | disposition home or self-care (01) ==
LOC: LOS 02:44
PROVIDERS: PCP Family Medicine; Visit Provider Family Medicine
DX: Z00.00 Encounter for general adult medical examination without abnormal findings (principal); Z13.6 Encounter for screening for cardiovascular disorders; M19.90 Unspecified osteoarthritis, unspecified site; E11.9 Type 2 diabetes mellitus without complications
CPT/HCPCS: 36415; 80053; 80061; 85652; 82607; 83036

== ENCOUNTER 2023-01-10 17:57 | Outpatient (REF) | payer SELFPAY ==
[2023-01-10 21:38] LABS: COMMENT (LAB VIEW ONLY) 121.65 mg/dL; Microalb ug/mg Crea 10.5 ug/mg Cr
== END 2023-01-10 17:58 | disposition home or self-care (01) ==
LOC: LBN 17:57
PROVIDERS: PCP Family Medicine; Visit Provider Family Medicine
DX: E11.9 Type 2 diabetes mellitus without complications (principal)
CPT/HCPCS: 82043; 82570

== ENCOUNTER 2024-08-01 15:37 | Outpatient (REF) | payer SELFPAY ==
[2024-08-01 21:35] LABS: ALT 23 U/L (14-59); AST 16 U/L (15-37); Albumin 3.8 g/dL (3.4-5.0); Alkaline Phosphatase 96 U/L (46-116); Anion Gap 7.1 mmol/L (3-11); BUN 19 mg/dL (7-18); Bilirubin, Total 0.39 mg/dL (0.2-1.0); CO2 28.9 mmol/L (21.0-32.0); CREATININE 0.7 mg/dL (0.55-1.02); Calcium 9.1 mg/dL (8.5-10.1); Calculated LDL 65 mg/dL (<100); Chloride 105 mmol/L (98-107); Cholesterol 144 mg/dL (<200); Estimated GFR 99.57 (mL/min/1.73m2); Glucose 150 mg/dL (74-106); HDL Cholesterol 59 mg/dL (40-60); Sodium 141 mmol/L (136-145); Triglyceride 103 mg/dL (<150)
[2024-08-01 22:07] LABS: COMMENT (LAB VIEW ONLY) 83.89 mg/dL; Microalb ug/mg Crea 7.7 ug/mg Cr
== END 2024-08-01 15:38 | disposition home or self-care (01) ==
LOC: NCHCN 15:37
PROVIDERS: PCP Family Medicine; Visit Provider Family Medicine
DX: E11.9 Type 2 diabetes mellitus without complications (principal)
CPT/HCPCS: 80053; 80061; 82043; 82570